=== PATIENT | male | born 1940 | race Caucasian/White ===

== ENCOUNTER → 2016-06-12 | Outpatient (CLI) | payer OTHER, MEDICARE | LOC: MMPC 11:11 | DX: I50.20 Unspecified systolic (congestive) heart failure (principal); J44.9 Chronic obstructive pulmonary disease, unspecified; E55.9 Vitamin D deficiency, unspecified; I73.9 Peripheral vascular disease, unspecified; E11.9 Type 2 diabetes mellitus without complications; I25.10 Atherosclerotic heart disease of native coronary artery without angina pectoris; E66.9 Obesity, unspecified; E78.5 Hyperlipidemia, unspecified | CPT/HCPCS: 99213; G0463 ==

== ENCOUNTER → 2016-07-24 | Outpatient (CLI) | payer OTHER, MEDICARE ==
[2016-07-24 17:44] LABS: HEMOGLOBIN A1C 7.74 % (4.2-6.0); MEAN BLOOD GLUCOSE (CALC) 171.742 mg/dL
[2016-07-24 18:00] LABS: BUN/CREATININE RATIO 28.88 (6-20); CALCIUM 9.1 mg/dL (8.7-10.7); CREATININE 0.9 mg/dL (0.70-1.50); POTASSIUM 4.3 meq/L (3.8-5.2)
== END ==
LOC: MOB LAB 16:45
DX: E11.9 Type 2 diabetes mellitus without complications (principal); Z79.4 Long term (current) use of insulin; I10 Essential (primary) hypertension; F17.210 Nicotine dependence, cigarettes, uncomplicated
CPT/HCPCS: 36415; 80048; 83036

== ENCOUNTER → 2016-08-07 | Outpatient (CLI) | payer OTHER, MEDICARE | LOC: MMPC 10:00 | PROVIDERS: ATTEND Orthopaedic Surgery | DX: M25.562 Pain in left knee (principal); M25.561 Pain in right knee | CPT/HCPCS: 20610; G0463; J0702 ==

== ENCOUNTER → 2016-08-20 | Outpatient (CLI) | payer OTHER, MEDICARE ==
[2016-08-20 11:30] LABS: BUN/CREATININE RATIO 31.53 (6-20); CALCIUM 9.4 mg/dL (8.7-10.7); URIC ACID 7.8 mg/dl (3.8-8.5)
== END ==
LOC: MOB LAB 10:20
DX: E11.9 Type 2 diabetes mellitus without complications (principal); Z79.4 Long term (current) use of insulin; I10 Essential (primary) hypertension; M10.062 Idiopathic gout, left knee; F17.210 Nicotine dependence, cigarettes, uncomplicated
CPT/HCPCS: 36415; 80048; 84550

== ENCOUNTER → 2016-10-16 | Outpatient (CLI) | payer OTHER, MEDICARE ==
[2016-10-16 13:00] LABS: BUN/CREATININE RATIO 28.88 (6-20); CALCIUM 9.4 mg/dL (8.7-10.7)
== END ==
LOC: MOB LAB 11:26
DX: E11.9 Type 2 diabetes mellitus without complications (principal); Z79.4 Long term (current) use of insulin; I10 Essential (primary) hypertension; F17.200 Nicotine dependence, unspecified, uncomplicated
CPT/HCPCS: 36415; 80048

== ENCOUNTER 2016-11-26 20:54 | Observation (INO) | payer OTHER, MEDICARE ==
[2016-11-26] MEDS ORDERED: NORMAL SALINE 10 ML SYRINGE FLUSH IVP PRN ×2 (21:00→23:41)
[2016-11-26] MEDS ORDERED: Sodium Chloride 0.9% 1,000 ML PRIMARY IV ONE (21:00)
--- NOTE | 2016-11-26 21:11 | EKG ---
[address] [address] Measurements Intervals [place] Rate: 85 P: MA: 0 QRS: 96 QRSD: 107 T: 72 QT: 366 QTc: 408 Interpretive Statements ATRIAL FIBRILLATION BORDERLINE RIGHT AXIS DEVIATION POSSIBLE OLD INFERIOR MT NONSPECIFIC ST CHANGES POSSIBLE RIGHT VENTRICULAR CONDUCTION DELAY Compared to ECG 04/07/2016 14:19:38 ST (T wave) deviation now present Myocardial infarct finding still present Electronically Signed On 11-27-16 09:52:57 MDT by Levy Patel [email or web address]
[2016-11-26 21:29] LABS: BASOPHILS # (AUTO) 0.06 10*3/UL; BASOPHILS % (AUTO) 0.7 % (0-1); EOSINOPHILS # (AUTO) 0.14 10*3/UL; EOSINOPHILS % (AUTO) 1.6 % (0-8); HEMATOCRIT 47.7 % (42.0-52.0); HEMOGLOBIN 15.9 g/dL (14.0-18.0); LYMPHOCYTES # (AUTO) 1.08 10*3/uL; MEAN CORPUSCULAR HEMOGLOBIN 30.9 PG (27-31); MEAN CORPUSCULAR HGB CONC 33.3 g/dL (33-37); MEAN CORPUSCULAR VOLUME 92.6 FL (80-90); MEAN PLATELET VOLUME 9.9 FL (7.4-12.2); MONOCYTES # (AUTO) 0.86 10*3/UL (0.3-0.8); MONOCYTES % (AUTO) 9.6 % (5-15); NEUTROPHILS # (AUTO) 6.76 10*3/UL; NEUTROPHILS % (AUTO) 75.6 % (50-80); RED BLOOD COUNT 5.15 10^6/uL (4.70-6.10)
[2016-11-26 21:34] LABS: PLATELET MORPHOLOGY COMMENT NORMAL MORPHOLOGY (NORM); RBC MORPHOLOGY COMMENT NORMAL MORPHOLOGY (NORM); WBC MORPHOLOGY COMMENT NORMAL MORPHOLOGY (NORM)
[2016-11-26 21:42] LABS: BILIRUBIN,URINE NEGATIVE (NEG); CLARITY,URINE CLEAR (CLEAR); COLOR,URINE YELLOW; GLUCOSE, URINE (UA) 250 mg/dL (NEG); NITRATE,URINE NEGATIVE (NEG); OCCULT BLOOD,URINE NEGATIVE (NEG); PROTEIN,URINE NEGATIVE (NEG)
[2016-11-26 21:43] LABS: BLOOD UREA NITROGEN 29 mg/dL (7-22); BUN/CREATININE RATIO 24.16 (6-20); C-REACTIVE PROTEIN 1.2 mg/dL (0.0-0.9); CALCIUM 9.3 mg/dL (8.7-10.7); MAGNESIUM 1.6 mg/dL (1.6-2.4); SERUM ALBUMIN 4.3 g/dL (3.5-4.8)
[2016-11-26 21:48] LABS: URINE SAMPLE TYPE CLEAN CATCH URINE
[2016-11-26 21:49] LABS: AMPHETAMINE SCREEN NEGATIVE (NEG); BACTERIA,URINE RARE; CANNABINOID SCREEN,URINE NEGATIVE (NEG); COCAINE SCREEN NEGATIVE (NEG); METHADONE URINE SCREEN NEGATIVE (NEG); METHAMPHETAMINES SCREEN,URINE NEGATIVE (NEG); OPIATE SCREEN,URINE NEGATIVE (NEG); RBC,URINE RARE /hpf; SQUAMOUS EPITHELIAL CELL,UR RARE; URINE SPECIFIC GRAVITY - MAN 1.009; WBC,URINE RARE
--- NOTE | 2016-11-26 22:19 | DI ---
HISTORY: Speech difficulty. COMPARISON: None available. TECHNIQUE: A noncontrast head CT was performed. FINDINGS: There is no midline shift or mass effect. The CSF spaces to include the ventricles, ciste rns and cerebral sulci are age appropriate. There are no pathologic fluid collections or evidence of acute intracranial hemorrhage. There are mild hypoattenuating regions within the white matter which are most compatible with age ind eterminate microvascular ischemic changes. There are atherosclerotic calcifications within the caroti d siphons. There is complete opacification of the right maxillary sinus. No significant mastoid air cell fluid. The imaged soft tissues of the neck and orbits are unremarkable. IMPRESSION: 1. Mild hypoattenuating regions within the white matter which are most compatible with age indetermin ate microvascular ischemic changes. 2. No acute intracranial hemorrhage, midline shift or mass effect. 3. There is right maxillary sinus disease with complete opacification of the right maxillary sinus.
[2016-11-26] MEDS ORDERED: Apixaban 5 MG TABLET PO ONE (22:22)
[2016-11-26] MEDS ORDERED: NITROGLYCERIN 0.4 MG SL TAB (BOTTLE OF 3) SL SCH (23:41)
[2016-11-26] MEDS ORDERED: LIDOCAINE W/ SODIUM BICARB 0.5 ML SYR SUBD PRN (23:41)
[2016-11-26] MEDS ORDERED: HEPARIN 5000 UNIT/1 ML SUBCUT SCH (23:41)
--- NOTE | 2016-11-27 00:31 | PDOC ---
General Adult HPI - General Chief Complaint: General Medical Stated Complaint: SLURRED SPEECH Date Seen by Provider: 11/26/16 Time Seen by Provider: 20:55 Source: POSITIVE: Patient, EMS Exam Limitations: POSITIVE: No limitations Nurse's Notes Reviewed & Considered: Yes EMS Report Reviewed & Considered: Verbal - History of Present Illness Initial Comment: The patient is a 76-year-old male who is brought to the emergency department by ambulance after an episode of slurred speech, word finding and increased confusion. The patient is a known diabetic and has a history of heart disease with previous bypass surgery as well as chronic atrial fibrillation. Apparently while talking to some friends earlier this evening he had onset of slurred speech and was having difficulty finding words. According to the patient this lasted for a total of 15-20 minutes. EMS had been called and by the time they arrived architectural manager reported fairly normal speech. The patient does seem somewhat confused at times more than baseline however has not exhibited any further speech difficulties. On arrival the patient denies any headache, chest pain, numbness or weakness in his extremities, change in vision or any other associated complaints. His blood sugar in route was 240. He does take Coumadin for atrial fibrillation however admits he does not remember when he took it last. architectural manager report that he was sitting outside in the shade when they came to pick him up. Have you received a tetanus shot in the past 10 years?: Unknown - Patient Home Medications Home Medications: Home Medications Nitroglycerin SL Tab [Nitrostat SL Tab] 1 tab SL ONCE #25 tab 01/18/15 Alprazolam 1 tab PO BID PRN #60 tab 07/07/16 Syringe & Needle,Insulin,1 ml [Easy Comfort Insulin Syringe] 1 each MC BID #100 box 07/18/16 Metformin HCl [Glucophage] 1 tab PO BID #60 tab 07/30/16 Warfarin Sodium [Coumadin] 0.5 - 1 tab PO QD #60 tab 07/30/16 Metoprolol Succinate [Toprol Xl] 1 tab PO QD #30 tab 08/11/16 Atorvastatin Calcium 1 tab PO QD #30 tab 08/18/16 Allopurinol 0.5 tab PO QD #15 tab 08/21/16 Furosemide 1.5 tab PO QD #60 tab 08/21/16 Potassium Chloride [Klor-Con 10] 1 tab PO QD #30 tab 08/21/16 Gabapentin 4 cap PO QD #120 cap 09/16/16 Quinapril HCl [Accupril] 1 tab PO QD #30 tab 09/29/16 Detemir Inj [Levemir Inj] 40 unit SUBCUT BID #2 vial 10/01/16 Insulin Glargine Inj [Lantus Inj] 80 units SUBCUT QHS #1 vial 10/16/16 Tamsulosin HCl 1 cap PO QHS #30 cap 11/11/16 - Patient Allergies Allergies/Adverse Reactions: Allergies Allergy/AdvReac Type Severity Reaction Status Date / Time No Known Allergies Allergy Verified 11/26/16 21:08 Past Medical History - heen HEENT History: Denies History, Other (please comment) Additional HEENT History: MISSING TEETH Cardiovascular History: Hypertension, Other (please comment) Additional Cardiovasular History: CARDIAC SURGERY 5 YEARS AGO Respiratory History: Denies History Gastrointestinal History: Denies History Genitourinary History: Denies History Endocrine History: Type 2 Diabetes (oral), Type 2 Diabetes (insulin) Musculoskeletal History: Denies History Prosthesis or Implant: No Neurological History: Denies History Blood Disorders: Denies History Psychiatric History: Anxiety Disorders History of Sexually Transmitted Diseases: No Cancer History: Denies History In Past Year Been Physically Harmed or Verbally Threatened: No History of MDRO: No History of Other Communicable Diseases: No Tobacco Use: Current Every Day Smoker Alcohol Use: Sober Substance Use Type: None Previous Surgical History: Yes Type / Date of Surgery: CABG x3, BACK Anesthesia Reactions: No Malignant Hyperthermia: No Significant Family History: Other (please comment) Additional Family History: unknown Past Medical History Reviewed: Reviewed - No Changes ROS - Limitations ROS Limitations: No Limitations Constitution: DENIES: Chills, Fever Cardiovascular: DENIES: Chest Pain Respiratory: REPORTS: Denies Resp Symptoms, Shortness Of Breath (Chronic shortness of breath, history of COPD on 2 L of oxygen at home) Neurological: REPORTS: Confusion. DENIES: Headache, Numbness, Weakness Gastrointestinal: REPORTS: Denies GI Symptoms Endocrine: REPORTS: Denies Symptoms Musculoskeletal: REPORTS: Denies MS Symptoms Genitourinary: REPORTS: Denies Symptoms Eyes: REPORTS: Denies Symptoms ENT: REPORTS: Denies Symptoms Skin: DENIES: Rash General Adult Exam - General Appearance General Appearance: POSITIVE: Alert, Cooperative, No Acute Distress - HEENT HEENT: POSITIVE: Head Inspection Nml, Eyes Inspection Nml, Ears Inspection Nml, Pharynx Inspect. Nml - Neck Neck: POSITIVE: Normal Inspection. NEGATIVE: Lymphadenopathy - Respiratory Respiratory: POSITIVE: No Respiratory Distress, Breath Sounds Normal - Cardiovascular Cardiovascular: POSITIVE: No Murmur, Irregularly Irreg. 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 Chest x-ray shows no acute changes. Lab Results Reviewed: Yes Lab Results:: Laboratory Results 11/26/16 Range/Units 20:30 WBC 8.94 (4.8-10.8) 10^3/uL RBC 5.15 (4.70-6.10) 10^6/uL Hgb 15.9 (14.0-18.0) g/dL Hct 47.7 (42.0-52.0) % MCV 92.6 H (80-90) FL MCH 30.9 (27-31) PG MCHC 33.3 (33-37) g/dL RDW Std Deviation 53.2 H (39-50) fL RDW Coeff of Parminder 16.4 H (11.5-14.5) % Plt Count 258 (140-350) 10*3/uL MPV 9.9 (7.4-12.2) FL Immature Gran % (Auto) 0.4 (0-5) % Neut % (Auto) 75.6 (50-80) % Lymph % (Auto) 12.1 (10-50) % [place] % (Auto) 9.6 (5-15) % Eos % (Auto) 1.6 (0-8) % Baso % (Auto) 0.7 (0-1) % Immature Gran # (Auto) 0.04 10*3/UL Neut # (Auto) 6.76 10*3/UL Lymph # (Auto) 1.08 10*3/uL [place] # (Auto) 0.86 H (0.3-0.8) 10*3/UL Eos # (Auto) 0.14 10*3/UL Baso # (Auto) 0.06 10*3/UL WBC Morphology Comment Normal morphology (NORM) Plt Morphology Comment Normal morphology (NORM) RBC Morph Comment Normal morphology (NORM) PT 11.4 (9.7-11.4) secs INR 1.10 (0.00-5.90) N/A Sodium 138 (135-145) meq/L Potassium 4.3 (3.8-5.2) meq/L Chloride 99 (98-112) meq/L Carbon Dioxide 25 (23-33) meq/L Anion Gap 14 (5-20) BUN 29 H (7-22) mg/dL Creatinine 1.2 (0.70-1.50) mg/dL Estimated GFR (>60 ml/min/1.73m(2)) BUN/Creatinine Ratio 24.16 H (6-20) Glucose 270 H (78-110) mg/dL Calculated Osmolality 301.0 H (267-292) mOsm/kg Calcium 9.3 (8.7-10.7) mg/dL Magnesium 1.6 (1.6-2.4) mg/dL Total Bilirubin 0.6 (0.3-1.2) mg/dL AST 30 (21-57) IU/L ALT 42 (21-72) IU/L Alkaline Phosphatase 78 (38-126) IU/L Troponin I < 0.012 (< 0.040) ng/mL C-Reactive Protein 1.2 H (0.0-0.9) mg/dL Total Protein 7.0 (6.1-8.0) g/dL Albumin 4.3 (3.5-4.8) g/dL Globulin 2.7 (2.50-4.10) g/dL Albumin/Globulin Ratio 1.50 (1.3-2.0) mg/g Ur Collection Type Clean catch urine Urine Color Yellow Urine Clarity Clear (CLEAR) Urine pH 5.0 (5.0-8.5) Ur Specific [place] 1.010 (1.005-1.030) U Specif Grav (Refrac) 1.009 Urine Protein Negative (NEG) mg/dl Urine Glucose (UA) 250 (NEG) mg/dL Urine Ketones Negative (NEG) Urine Occult Blood Negative (NEG) Urine Nitrate Negative (NEG) Urine Bilirubin Negative (NEG) Urine Urobilinogen 1.0 (0.2) EU/dL Ur Leukocyte Esterase Trace (NEG) Urine RBC Rare (NONE) /hpf Urine WBC Rare (NONE) Ur Squamous Epith Cells Rare (NONE) Ur Renal Epithelial Cell None (NONE) Urine Crystals None Urine Bacteria Rare (NONE) Urine Casts None (NONE) Urine Mucus None (NONE) Urine Trichomonas None (NONE) Urine Yeast None (NONE) Ur Culture Indicated? Culture not set Urine Opiates Screen Negative (NEG) Ur Buprenorphine Negative (NEG) Ur Oxycodone Screen Negative (NEG) Urine Methadone Screen Negative (NEG) Ur Propoxyphene Screen Negative (NEG) Barbiturate Screen Negative (NEG) U Tricyclic Antidepress Negative (NEG) Phencyclidine Screen Negative (NEG) Amphetamines Screen Negative (NEG) U Methamphetamines Scrn Negative (NEG) Benzodiazepines Screen Negative (NEG) Cocaine Screen Negative (NEG) U Marijuana (THC) Screen Negative (NEG) Serum Alcohol < 10 (0-10) mg/dL EKG Interpreted/Reviewed By Me:: Yes EKG Interpretation:: POSITIVE: Other (EKG shows atrial fibrillation with a normal rate of 85, no acute ST segment or T-wave changes) - Patient's Progress MDM / ED Course: On arrival the patient does not exhibit any focal neurologic deficits. He does not show any obvious speech deficit or slurred speech. Occasionally he does seem confused. The patient's CT does show several small hypodense lesions concerning for indeterminate age ischemic changes per radiologist. He does have chronic atrial fibrillation and is subtherapeutic on his INR at 1.1. By history he had some mild expressive aphasia and slurred speech concerning for TIA with symptoms lasting 15-20 minutes. It is possible that he may have had a small embolic event secondary to his atrial fibrillation and subtherapeutic INR. These findings were discussed with the patient. I also discussed patient with Dr. Shukla who is agreed to admit the patient for further observation. He recommended starting the patient on eliquis instead of Coumadin. He was given a dose of 5 mg of eliquis. The patient is in agreement with current plan. - Consult Counseled: POSITIVE: Patient, RE: Lab Results, RE: Radiology Results, RE: DX Patient Care Time - Estimated PCT Patient Care Time (In Minutes): 30 Vital Signs - Recent Vital Signs Vital Signs: Vital Signs (Last 8 hours) Temp Pulse Resp BP Pulse Ox 11/26/16 23:33 98.2 F 85 16 151/80 11/26/16 22:44 85 16 11/26/16 20:55 97.8 F 97 20 156/85 90 - VS Reviewed Vital Signs Reviewed: Yes Discharge Clinical Impression: Transient cerebral ischemia, Subtherapeutic international normalized ratio (INR ), Atrial fibrillation Discharge Disposition: Admit to Observation Condition: Fair
[2016-11-27] MEDS: HEPARIN 5000 UNIT/1 ML SUBCUT SCH ×2 (00:54→08:24)
[2016-11-27] MEDS ORDERED: LORazepam 2 MG/1 ML VIAL IVP PRN (02:09)
[2016-11-27] MEDS: LORazepam 2 MG/1 ML VIAL IVP PRN ×3 (02:22→05:50)
[2016-11-27 02:57] LABS: BASOPHILS # (AUTO) 0.06 10*3/UL; BASOPHILS % (AUTO) 0.7 % (0-1); EOSINOPHILS # (AUTO) 0.11 10*3/UL; EOSINOPHILS % (AUTO) 1.2 % (0-8); HEMATOCRIT 43.8 % (42.0-52.0); HEMOGLOBIN 14.7 g/dL (14.0-18.0); LYMPHOCYTES # (AUTO) 1.17 10*3/uL; MEAN CORPUSCULAR HEMOGLOBIN 30.8 PG (27-31); MEAN CORPUSCULAR HGB CONC 33.6 g/dL (33-37); MEAN CORPUSCULAR VOLUME 91.8 FL (80-90); MEAN PLATELET VOLUME 9.2 FL (7.4-12.2); MONOCYTES % (AUTO) 10.9 % (5-15); NEUTROPHILS # (AUTO) 6.78 10*3/UL; NEUTROPHILS % (AUTO) 74.1 % (50-80); RED BLOOD COUNT 4.77 10^6/uL (4.70-6.10)
[2016-11-27 03:36] LABS: CALCIUM 8.8 mg/dL (8.7-10.7); MAGNESIUM 1.5 mg/dL (1.6-2.4); SERUM ALBUMIN 3.6 g/dL (3.5-4.8)
[2016-11-27 03:40] LABS: PLATELET MORPHOLOGY COMMENT NORMAL MORPHOLOGY (NORM); RBC MORPHOLOGY COMMENT NORMAL MORPHOLOGY (NORM); WBC MORPHOLOGY COMMENT NORMAL MORPHOLOGY (NORM)
[2016-11-27 04:06] LABS: FREE T4 (FREE THYROXINE) 1.39 ng/dL (0.93-1.71)
[2016-11-27] MEDS ORDERED: MORPHINE SULFATE 2 MG/1 ML IVP PRN (06:09)
[2016-11-27] MEDS: ALPRAZolam Tab 0.25 MG TABLET PO SCH ×2 (07:49→08:34)
--- NOTE | 2016-11-27 08:02 | DI ---
AP CHEST X-RAY, 11/26/2016 9:00 PM : Clinical History: Hypoxia. Previous Exam: 04/07/2016. There is no acute soft tissue or bony abnormality. The patient is status post CABG. The heart size is normal. Lungs are clear. Mediastinal structures are normal. There are no pulmonary nodules. Reading: Normal chest x-ray. There has been no significant interval change.
[2016-11-27] MEDS ORDERED: LORazepam 1 MG TABLET ONE (08:26)
[2016-11-27] MEDS ORDERED: LORazepam 1 MG TABLET PO ONE (08:38)
[2016-11-27] MEDS ORDERED: METOPROLOL SUCCINATE 25 MG SR 24H TABLET PO SCH (09:00)
[2016-11-27] MEDS ORDERED: QUINAPRIL 20 MG TABLET PO SCH (09:00)
[2016-11-27] MEDS ORDERED: Potassium Chloride Tab 10 MEQ TAB PO SCH (09:00)
[2016-11-27] MEDS ORDERED: ALLOPURINOL 300 MG TABLET PO SCH (09:00)
[2016-11-27] MEDS ORDERED: FUROSEMIDE 40 MG TABLET PO SCH (09:00)
[2016-11-27] MEDS ORDERED: ASPIRIN EC 81 MG TABLET PO SCH (09:00)
[2016-11-27] MEDS ORDERED: metFORMIN 500 MG TABLET PO SCH (09:00)
[2016-11-27] MEDS ORDERED: DETEMIR SUBCUT SCH (09:00)
[2016-11-27] MEDS ORDERED: GABAPENTIN 300 MG CAPSULE PO SCH (09:00)
[2016-11-27] MEDS ORDERED: Apixaban Tab 2.5 MG TABLET PO SCH (09:00)
[2016-11-27 09:11] VITALS: RESP 20; TEMP 97.4
--- NOTE | 2016-11-27 09:11 | PDOC ---
History and Physical - History of Present Illness History of Present Illness: This very nice 76-year-old gentleman who by taking care of before. Past medical history significant for diabetes, coronary artery disease with previous bypass and chronic A. fib. While talking with some friends he had some slurred speech and OT finding words for about 15-20 minutes. By the time he hit the ER he was back to his baseline. He is not very compliant with taking his Coumadin and is very difficult for him to taking get checks he was subtherapeutic on blood work. He has some agitation but this is because he really wants to go home and does not feel comfortable in the hospital this is also his normal behavior which she exhibited last time he was here did not want to be in the hospital and his restless he wants to be in his whole bed and environment. I did call the daughter at the bedside who works in the kitchen patient appeared to be his normal self he was not restless more we talked he was awake oriented 3 he does not want an MRI of his head does not want carotid Doppler and does not want another echo he just wants to be going home. We discussed medications in regards to the specifically the Coumadin with the daughter and the patient we will be putting him on Eliquis since he did most of the time he subtherapeutic and has not a lot and does not like taking Coumadin. He continues to smoke and I have cautioned him against this the patient and the daughter did not want any physical therapy and occupational therapy or if his social service involved. They will be discharged home and follow-up as an outpatient with their physician. He is doing well this morning no neurologic abnormalities speaking in full sentences. Also on CT scan of his head does not signs of stroke but there is a opacification of the right maxillary I will give him a course of antibiotics Augmentin for 7 days Laboratory Results 11/26/16 11/27/16 Range/Units 20:30 02:47 WBC 8.94 9.15 (4.8-10.8) 10^3/uL RBC 5.15 4.77 (4.70-6.10) 10^6/uL Hgb 15.9 14.7 (14.0-18.0) g/dL Hct 47.7 43.8 (42.0-52.0) % MCV 92.6 H 91.8 H (80-90) FL MCH 30.9 30.8 (27-31) PG MCHC 33.3 33.6 (33-37) g/dL RDW Std Deviation 53.2 H 52.1 H (39-50) fL RDW Coeff of Parminder 16.4 H 15.8 H (11.5-14.5) % Plt Count 258 220 (140-350) 10*3/uL MPV 9.9 9.2 (7.4-12.2) FL Immature Gran % (Auto) 0.4 0.3 (0-5) % Neut % (Auto) 75.6 74.1 (50-80) % Lymph % (Auto) 12.1 12.8 (10-50) % [place] % (Auto) 9.6 10.9 (5-15) % Eos % (Auto) 1.6 1.2 (0-8) % Baso % (Auto) 0.7 0.7 (0-1) % Immature Gran # (Auto) 0.04 0.03 10*3/UL Neut # (Auto) 6.76 6.78 10*3/UL Lymph # (Auto) 1.08 1.17 10*3/uL [place] # (Auto) 0.86 H 1.00 H (0.3-0.8) 10*3/UL Eos # (Auto) 0.14 0.11 10*3/UL Baso # (Auto) 0.06 0.06 10*3/UL WBC Morphology Comment Normal morphology Normal morphology (NORM) Plt Morphology Comment Normal morphology Normal morphology (NORM) RBC Morph Comment Normal morphology Normal morphology (NORM) PT 11.4 11.7 H (9.7-11.4) secs INR 1.10 1.13 (0.00-5.90) N/A Sodium 138 131 L (135-145) meq/L Potassium 4.3 4.1 (3.8-5.2) meq/L Chloride 99 100 (98-112) meq/L Carbon Dioxide 25 24 (23-33) meq/L Anion Gap 14 7 (5-20) BUN 29 H 25 H (7-22) mg/dL Creatinine 1.2 1.0 (0.70-1.50) mg/dL Estimated GFR (>60 ml/min/1.73m(2)) BUN/Creatinine Ratio 24.16 H 25.00 H (6-20) Glucose 270 H 231 H (78-110) mg/dL Calculated Osmolality 301.0 H 282.0 (267-292) mOsm/kg Calcium 9.3 8.8 (8.7-10.7) mg/dL Magnesium 1.6 1.5 L (1.6-2.4) mg/dL Total Bilirubin 0.6 0.8 (0.3-1.2) mg/dL AST 30 22 (21-57) IU/L ALT 42 41 (21-72) IU/L Alkaline Phosphatase 78 72 (38-126) IU/L Troponin I < 0.012 0.013 (< 0.040) ng/mL C-Reactive Protein 1.2 H (0.0-0.9) mg/dL Total Protein 7.0 5.9 L (6.1-8.0) g/dL Albumin 4.3 3.6 (3.5-4.8) g/dL Globulin 2.7 2.3 L (2.50-4.10) g/dL Albumin/Globulin Ratio 1.50 1.50 (1.3-2.0) mg/g TSH 1.16 (0.2700-4.2000) uIU/mL Free T4 1.39 (0.93-1.71) ng/dL Ur Collection Type Clean catch urine Urine Color Yellow Urine Clarity Clear (CLEAR) Urine pH 5.0 (5.0-8.5) Ur Specific [place] 1.010 (1.005-1.030) U Specif Grav (Refrac) 1.009 Urine Protein Negative (NEG) mg/dl Urine Glucose (UA) 250 (NEG) mg/dL Urine Ketones Negative (NEG) Urine Occult Blood Negative (NEG) Urine Nitrate Negative (NEG) Urine Bilirubin Negative (NEG) Urine Urobilinogen 1.0 (0.2) EU/dL Ur Leukocyte Esterase Trace (NEG) Urine RBC Rare (NONE) /hpf Urine WBC Rare (NONE) Ur Squamous Epith Cells Rare (NONE) Ur Renal Epithelial Cell None (NONE) Urine Crystals None Urine Bacteria Rare (NONE) Urine Casts None (NONE) Urine Mucus None (NONE) Urine Trichomonas None (NONE) Urine Yeast None (NONE) Ur Culture Indicated? Culture not set Urine Opiates Screen Negative (NEG) Ur Buprenorphine Negative (NEG) Ur Oxycodone Screen Negative (NEG) Urine Methadone Screen Negative (NEG) Ur Propoxyphene Screen Negative (NEG) Barbiturate Screen Negative (NEG) U Tricyclic Antidepress Negative (NEG) Phencyclidine Screen Negative (NEG) Amphetamines Screen Negative (NEG) U Methamphetamines Scrn Negative (NEG) Benzodiazepines Screen Negative (NEG) Cocaine Screen Negative (NEG) U Marijuana (THC) Screen Negative (NEG) Serum Alcohol < 10 (0-10) mg/dL Vital Signs (24 hrs) Temp Pulse Pulse Resp BP BP Pulse Ox 11/27/16 04:57 97.5 F 90 18 130/67 92 11/27/16 04:32 91 11/27/16 02:53 80 11/27/16 01:00 155/85 11/26/16 23:33 98.2 F 85 16 151/80 11/26/16 22:44 85 16 11/26/16 22:40 98.6 F 84 22 147/95 92 11/26/16 21:02 90 11/26/16 20:55 97.8 F 97 20 156/85 90 Past Medical History Medical History: 1. Diabetes type II on insulin. 2. Hypertension. 3. Atrial fibrillation, on Coumadin for stroke prevention. 4. Coronary artery disease with CABG years ago. 5. Osteoarthritis. 6. Hyperlipidemia. 7. Sleep apnea. 8. Recent treatment for cellulitis Surgical History: 1. CABG many years ago. 2. Lumbar spine surgery Family History: Reviewed an Not Pertinent Pertinent Family History: No major history of heart disease or diabetes in the family. Past Social History: Smokes, doesn't drink alcohol, has 2 children described as healthy. Lives alone in [place], [place]. Tobacco Use: Current Every Day Smoker Substance Use Type: None Medication / Allergies Home Medications: Home Medications Medication Instructions Recorded Confirmed Type Nitroglycerin SL Tab [Nitrostat 1 tab SL ONCE #25 tab 01/18/15 11/26/16 Clinic SL Tab] Alprazolam 1 tab PO BID PRN #60 tab 07/07/16 11/26/16 Clinic Syringe & Needle,Insulin,1 ml 1 each MC BID #100 box 07/18/16 11/26/16 Clinic [Easy Comfort Insulin Syringe] Metformin HCl [Glucophage] 1 tab PO BID #60 tab 07/30/16 11/26/16 Clinic Warfarin Sodium [Coumadin] 0.5 - 1 tab PO QD #60 tab 07/30/16 11/26/16 Clinic Metoprolol Succinate [Toprol Xl] 1 tab PO QD #30 tab 08/11/16 11/26/16 Clinic Atorvastatin Calcium 1 tab PO QD #30 tab 08/18/16 11/26/16 Clinic Allopurinol 0.5 tab PO QD #15 tab 08/21/16 11/26/16 Clinic Furosemide 1.5 tab PO QD #60 tab 08/21/16 11/26/16 Clinic Potassium Chloride [Klor-Con 10] 1 tab PO QD #30 tab 08/21/16 11/26/16 Clinic Gabapentin 4 cap PO QD #120 cap 09/16/16 11/26/16 Clinic Quinapril HCl [Accupril] 1 tab PO QD #30 tab 09/29/16 11/26/16 [facility] Detemir Inj [Levemir Inj] 40 unit SUBCUT BID #2 vial 10/01/16 11/26/16 Clinic Insulin Glargine Inj [Lantus Inj] 80 units SUBCUT QHS #1 vial 10/16/16 11/26/16 [facility] Tamsulosin HCl 1 cap PO QHS #30 cap 11/11/16 11/26/16 Clinic Allergies/Adverse Reactions: Allergies Allergy/AdvReac Type Severity Reaction Status Date / Time No Known Allergies Allergy Verified 11/26/16 21:08 Review of Systems - Review of Systems All Systems: Reviewed & No Additional Complaints Except as Stated - Cardiovascular Cardiovascular: DENIES: Negative System Review, Chest Pain, Edema, Syncope, Palpitations, Orthopnea, Paroxysmal Nocturnal Dyspnea, Other, See HPI - Gastrointestinal Gastrointestinal / Abdominal: DENIES: Negative System Review, Nausea, Vomiting, Diarrhea, Constipation, Abdominal Pain, Bloody Stool, Poor Appetite, Heartburn, Regurgitation, Bloating, Lactose Intolerance, Melena, Bright Red Blood Per Rectum, Other, See HPI - Neurological Neurologic: DENIES: Negative System Review, Headache, Numbness/Paresthesia, Tremors, Weakness, Seizures, Head Trauma, LOC, Dizziness, Confusion, Memory Loss , Difficulty Walking, Incoordination, Other, See HPI Exam - Vitals Vital Signs: Vital Signs Temperature 97.5 F Temperature Source Temporal Artery Scan Pulse Rate [Pulse Oximeter] 90 Pulse Rate 80 Respiratory Rate 18 Blood Pressure [Left Arm] 130/67 Blood Pressure 147/95 Pulse Ox 92 Oxygen Delivery Method Room Air Height 5 ft 8 in Weight 106.685 kg - General General Appearance: POSITIVE: No Acute Distress, Cooperative - Head Head Exam: POSITIVE: Normal Inspection, Normocephalic, Atraumatic - Eye Eye Exam: POSITIVE: Normal Appearance, PERRL, EOMI - Neck Neck Exam: POSITIVE: Normal Inspection - Respiratory Respiratory Exam: POSITIVE: Clear to Auscultation - Bilaterally, Breathing Non Labored, Normal To Percussion - Cardiovascular Cardiovascular Exam: POSITIVE: No Clicks, No Gallops, Irregular Rhythm. NEGATIVE: Gallop, JVD, No JVD - GI/Abdominal GI/Abdominal Exam: POSITIVE: Non Tender, Non Distended, Soft - Extremities Extremities Exam: POSITIVE: No Clubbing Present, No Edema Present, No Cyanosis Present - Neurological Neurological Exam: POSITIVE: Alert, Oriented x 3, CN II-XII Intact, No Facial Droop, Speech Intact / Clear, Moves All Extremities Equally, No Fasciculations. NEGATIVE: Abnormal Gait - Psychiatric Psychiatric Exam: POSITIVE: Normal Affect, Anxious Results - Labs CBC and BMP: 11/27/16 02:47 11/27/16 02:47 Labs - Last 24 Hours: Laboratory Results 11/27/16 Range/Units 02:47 WBC 9.15 (4.8-10.8) 10^3/uL RBC 4.77 (4.70-6.10) 10^6/uL Hgb 14.7 (14.0-18.0) g/dL Hct 43.8 (42.0-52.0) % MCV 91.8 H (80-90) FL MCH 30.8 (27-31) PG MCHC 33.6 (33-37) g/dL RDW Std Deviation 52.1 H (39-50) fL RDW Coeff of Parminder 15.8 H (11.5-14.5) % Plt Count 220 (140-350) 10*3/uL MPV 9.2 (7.4-12.2) FL Immature Gran % (Auto) 0.3 (0-5) % Neut % (Auto) 74.1 (50-80) % Lymph % (Auto) 12.8 (10-50) % [place] % (Auto) 10.9 (5-15) % Eos % (Auto) 1.2 (0-8) % Baso % (Auto) 0.7 (0-1) % Immature Gran # (Auto) 0.03 10*3/UL Neut # (Auto) 6.78 10*3/UL Lymph # (Auto) 1.17 10*3/uL [place] # (Auto) 1.00 H (0.3-0.8) 10*3/UL Eos # (Auto) 0.11 10*3/UL Baso # (Auto) 0.06 10*3/UL WBC Morphology Comment Normal morphology (NORM) Plt Morphology Comment Normal morphology (NORM) RBC Morph Comment Normal morphology (NORM) PT 11.7 H (9.7-11.4) secs INR 1.13 (0.00-5.90) N/A Sodium 131 L (135-145) meq/L Potassium 4.1 (3.8-5.2) meq/L Chloride 100 (98-112) meq/L Carbon Dioxide 24 (23-33) meq/L Anion Gap 7 (5-20) BUN 25 H (7-22) mg/dL Creatinine 1.0 (0.70-1.50) mg/dL Estimated GFR (>60 ml/min/1.73m(2)) BUN/Creatinine Ratio 25.00 H (6-20) Glucose 231 H (78-110) mg/dL Calculated Osmolality 282.0 (267-292) mOsm/kg Calcium 8.8 (8.7-10.7) mg/dL Magnesium 1.5 L (1.6-2.4) mg/dL Total Bilirubin 0.8 (0.3-1.2) mg/dL AST 22 (21-57) IU/L ALT 41 (21-72) IU/L Alkaline Phosphatase 72 (38-126) IU/L Troponin I 0.013 (< 0.040) ng/mL Total Protein 5.9 L (6.1-8.0) g/dL Albumin 3.6 (3.5-4.8) g/dL Globulin 2.3 L (2.50-4.10) g/dL Albumin/Globulin Ratio 1.50 (1.3-2.0) mg/g TSH 1.16 (0.2700-4.2000) uIU/mL Free T4 1.39 (0.93-1.71) ng/dL Assessment and Plan - Patient Problems (1) Atrial fibrillation Current Visit: Yes (2) Subtherapeutic international normalized ratio (INR) Current Visit: Yes Status: Removed (3) TIA (transient ischemic attack) Current Visit: Yes Status: Removed
--- NOTE | 2016-11-27 09:33 | DCSUMMARY ---
Hospitalization Summary Hospital Course: Please see my H&P which is also the discharge summary patient was admitted for observation H&P and discharge within 24 hours Exam - Vitals Vital Signs: Vital Signs Temperature 97.4 F Temperature Source Temporal Artery Scan Pulse Rate [Pulse Oximeter] 84 Pulse Rate 80 Respiratory Rate 20 Blood Pressure [Left Arm] 144/86 Blood Pressure 147/95 Pulse Ox 90 Oxygen Delivery Method Room Air Height 5 ft 8 in Weight 106.685 kg Patient Problems - Patient Problem List (1) Atrial fibrillation Current Visit: Yes (2) Subtherapeutic international normalized ratio (INR) Current Visit: Yes Status: Removed (3) TIA (transient ischemic attack) Current Visit: Yes Status: Removed
[2016-11-27] MEDS ORDERED: Insulin Glargine SoloStar Inj 100 UNIT/ML INSULN.PEN SUBCUT SCH (21:00)
[2016-11-27] MEDS ORDERED: TAMSULOSIN 0.4 MG CAPSULE PO SCH (21:00)
[2016-11-27] MEDS ORDERED: ATORVASTATIN 20 MG TABLET PO SCH (21:00)
== END 2016-11-27 11:00 | disposition home or self-care (01) ==
LOC: ER 20:54 → MED/SURG 22:30
PROVIDERS: ADMIT Internal Medicine; ATTEND Internal Medicine
DX: G45.9 Transient cerebral ischemic attack, unspecified (principal); I48.91 Unspecified atrial fibrillation
CPT/HCPCS: 36415; 70450; 71010; 80053; 80305; 80320; 81001; 81003; 83735; 84439; 84443; 84484; 85025; 85610; 86140; 93005; 93010; 94761; 96374; 99284; J1644; J2060; J2270; J7030

== ENCOUNTER → 2016-12-03 | Outpatient (CLI) | payer OTHER, MEDICARE | LOC: MOB LAB 10:46 | PROVIDERS: ATTEND Physician Assistant | DX: Z09 Encounter for follow-up examination after completed treatment for conditions other than malignant neoplasm (principal); I10 Essential (primary) hypertension; E11.9 Type 2 diabetes mellitus without complications; Z79.4 Long term (current) use of insulin; Z79.01 Long term (current) use of anticoagulants | CPT/HCPCS: 36415; 85610 ==

== ENCOUNTER → 2016-12-22 | Outpatient (CLI) | payer OTHER, MEDICARE | LOC: MMPC 10:00 | PROVIDERS: ATTEND Orthopaedic Surgery | DX: M17.0 Bilateral primary osteoarthritis of knee (principal) | CPT/HCPCS: 20610 ×2; G0463; J0702 ==

== ENCOUNTER → 2017-01-08 | Outpatient (CLI) | payer OTHER, MEDICARE ==
--- NOTE | 2017-01-08 12:38 | DI ---
History: Right wrist pain Comparison: None: No fracture No malalignment No erosive/destructive changes Faint density within the soft tissue around the wrist. Etiology of this finding is indeterminate by t hese images. Impression No acute injury. No destructive or degenerative osseous changes Faint scattered soft tissue density around the wrist. Etiology is indeterminate
== END ==
LOC: MOB RAD 10:16
DX: M25.531 Pain in right wrist (principal); S60.211A Contusion of right wrist, initial encounter; S00.31XA Abrasion of nose, initial encounter; W06.XXXA Fall from bed, initial encounter; Z72.0 Tobacco use
CPT/HCPCS: 73110; 81002; 99213

== ENCOUNTER 2017-10-15 16:18 | Inpatient (IN) ==
[2017-10-15] MEDS ORDERED: Sodium Chloride 0.9% 1,000 ML PRIMARY IV ONE (16:53)
[2017-10-15] MEDS ORDERED: LIDOCAINE HCL 1%/EPI 1:100,000 - 20 ML VIAL SUBCUT ONE (16:56)
--- NOTE | 2017-10-15 17:10 | EKG ---
[address] [place] [address] Measurements Intervals [place] Rate: 102 P: SC: 0 QRS: 101 QRSD: 113 T: 61 QT: 335 QTc: 394 Interpretive Statements ATRIAL FIBRILLATION WITH RAPID VENTRICULAR RESPONSE RIGHT AXIS DEVIATION [QRS AXIS > 100] POSSIBLE INFERIOR MYOCARDIAL INFARCTION PROBABLY OLD NONSPECIFIC ST-T WAVE CHANGES Compared to ECG 11/26/2016 21:16:28 Myocardial infarct finding still present Right ventricular conduction delay no longer present Electronically Signed On 10-17-17 17:20:26 MDT by Levy Patel [email or web address]
[2017-10-15] MEDS ORDERED: Lidocaine 1% 10 MG/ML - 20 ML VIAL SUBCUT ONE (17:23)
[2017-10-15 17:25] LABS: BASOPHILS # (AUTO) 0.02 10*3/UL; BASOPHILS % (AUTO) 0.2 % (0-1); EOSINOPHILS # (AUTO) 0.01 10*3/UL; EOSINOPHILS % (AUTO) 0.1 % (0-8); Hematocrit [HCT] 51.1 % (42.0-52.0); Hemoglobin [HGB] 16.9 g/dL (14.0-18.0); LYMPHOCYTES # (AUTO) 0.68 10*3/uL; MEAN CORPUSCULAR HEMOGLOBIN 29.5 PG (27-31); MEAN CORPUSCULAR HGB CONC 33.1 g/dL (33-37); MEAN CORPUSCULAR VOLUME 89.2 FL (80-90); MEAN PLATELET VOLUME 9.4 FL (7.4-12.2); MONOCYTES # (AUTO) 1.25 10*3/UL (0.3-0.8); NEUTROPHILS % (AUTO) 82.3 % (50-80); RED BLOOD COUNT 5.73 10^6/uL (4.70-6.10)
[2017-10-15 17:26] LABS: VENOUS PH 7.39 (7.32-7.42)
[2017-10-15 17:48] LABS: PLATELET MORPHOLOGY COMMENT NORMAL MORPHOLOGY (NORM); RBC MORPHOLOGY COMMENT NORMAL MORPHOLOGY (NORM); WBC MORPHOLOGY COMMENT NORMAL MORPHOLOGY (NORM)
[2017-10-15 18:22] LABS: APPEARANCE,SYNOVIAL FLUID HAZY (CLEAR, STRA); COLOR,SYNOVIAL FLUID YELLOW (CLR, STRW)
[2017-10-15 18:23] LABS: CRYSTALS, SYNOVIAL FLUID NONE SEEN (NS)
--- NOTE | 2017-10-15 18:36 | DI ---
AP /LATERAL CHEST, 10/15/2017 4:53 PM : Clinical History: Cough. Dyspnea. Previous Exam: 03/28/2016. There is no acute soft tissue or bony abnormality. The patient is status post CABG. Even for this pro jection, there is cardiomegaly but without CHF. There is no acute infiltrate or effusion. There is ce ntrilobular emphysema. Mediastinal structures are normal. There are no pulmonary nodules. Readin. There is no infiltrate or effusion. 2. Cardiomegaly without CHF. Status post CABG. 3. Centrilobular emphysema. 4. There has been no significant interval change.
[2017-10-15 18:43] LABS: BILIRUBIN,URINE NEGATIVE (NEG); CLARITY,URINE CLEAR (CLEAR); COLOR,URINE YELLOW (Y); GLUCOSE, URINE (UA) 500 mg/dL (NEG); OCCULT BLOOD,URINE NEGATIVE (NEG); PROTEIN,URINE NEGATIVE (NEG); UROBILINOGEN,URINE 0.2 EU/dL (0.2)
[2017-10-15 18:44] LABS: URINE SAMPLE TYPE VOIDED SPECIMEN
--- NOTE | 2017-10-15 18:46 | DI ---
LEFT KNEE, 10/15/2017 4:58 PM: Clinical History: Pain and swelling. Previous Exam: None at this facility. 3 views are submitted. A large joint effusion is present. Severe arthritic changes are present in the medial and lateral compartments with chondrocalcinosis. There is lateral subluxation of the patella with arthritic change. Readin. Degenerative arthritis of all 3 compartments. There is lateral subluxation of the patella with a large joint effusion. 2. Chondrocalcinosis.
--- NOTE | 2017-10-15 18:49 | DI ---
RIGHT KNEE, 10/15/2017 5:43 PM: Clinical History: Knee pain. Previous Exam: 04/11/2016. 3 views are submitted. A moderate joint effusion is present. Severe arthritic changes are present in the medial compartment with moderately severe arthritic change in the lateral compartment. There is c hondrocalcinosis. There is lateral subluxation of the patella with severe arthritic change. Bony dens ities are present along the right lateral margin of the patella similar to the last exam. Readin. Degenerative arthritis of all 3 compartments with severe changes in the medial and patellofemoral compartments. There is lateral subluxation of the patella. 2. Moderate joint effusion. Chondrocalcinosis.
[2017-10-15 19:22] LABS: BLOOD UREA NITROGEN 41 mg/dL (7-22); BUN/CREATININE RATIO 29.28 (6-20); SERUM ALBUMIN 3.9 g/dL (3.5-4.8)
--- NOTE | 2017-10-15 20:03 | PDOC ---
General Adult HPI - General Chief Complaint: Lower Extremity Problem/Injury Stated Complaint: fever, cough, shortness of breath, bilateral knee pain. Date Seen by Provider: 10/15/17 Time Seen by Provider: 16:40 Source: POSITIVE: Patient, EMS, Old records Exam Limitations: POSITIVE: No limitations Nurse's Notes Reviewed & Considered: Yes EMS Report Reviewed & Considered: Verbal - History of Present Illness Initial Comment: The patient is a 77-year-old male who is brought to the emergency room by the [facility]. The ambulance was called to the patient's residence by relatives. Reportedly the patient has been unable to ambulate for at least a couple of days. He does have chronic bilateral knee pain. Caregiver today visit the patient and reportedly his temperature was 100.8. Patient states he has had a cough and some increased shortness of breath lately. He has a history of coronary artery disease and has undergone a coronary artery bypass graft. He also has a history of diabetes, congestive heart failure and gout. He states he is not on home oxygen. He states he is "too weak to get up". He lives alone. He continues to smoke a pack of cigarettes per day. He denies present use of alcohol, but states he did drink heavily in the past. No nausea, diarrhea; chest or head or abdominal pain. Have you received a tetanus shot in the past 10 years?: Unknown Body Location Affected: REPORTS: Lower Extremity (L), Lower Extremity (R), Chest Timing: REPORTS: Gradual, Getting Worse Duration: >24 hours (2-3 days) Severity: Moderate Quality: REPORTS: "Pain" (Pain has some bilateral knee pain with ambulation.) Context: REPORTS: None Modifying Factors: improves with: Coughing, Walking Similar Symptoms Previously: Yes (family reports a similar episode in the past, diagnosed as "sepsis ") Recent Care Received: REPORTS: Denies Any Prior Injuries Related to Current Complaint?: No - Patient Home Medications Home Medications: Home Medications Nitroglycerin SL Tab [Nitrostat SL Tab] 1 tab SL ONCE #25 tab 01/18/15 Syringe and Needle,Insulin,1Ml [Easy Comfort Insulin Syringe] 1 ea MC BID #100 box 07/18/16 Aspirin [Aspir 81] 1 tab PO QD #30 tab 12/03/16 furosemide 40 mg tablet 60 mg PO QDAY #45 tab 04/14/17 alprazolam 0.25 mg tablet 0.25 mg PO BID PRN #60 tab 05/26/17 atorvastatin 20 mg tablet 20 mg PO QHS #30 tab 07/17/17 insulin detemir (U-100) 100 unit/mL subcutaneous solution 45 unit SUBCUT BID # 30 ml 07/17/17 potassium chloride ER 10 mEq capsule,extended release 10 meq PO QDAY #30 cap warfarin 10 mg tablet 0.5 - 1 tab PO as directed #60 tab 08/03/17 allopurinol 300 mg tablet 150 mg PO QD #15 tab 08/10/17 empagliflozin 10 mg tablet 10 mg PO QAM #30 tab 09/28/17 pregabalin 50 mg capsule 50 mg PO .QD #30 cap 09/29/17 metformin 1,000 mg tablet 1,000 mg PO BID #60 tab 10/06/17 quinapril 40 mg tablet 40 mg PO QD #30 tab 10/06/17 metoprolol succinate ER 25 mg tablet,extended release 24 hr 25 mg PO QD #30 tab 10/13/17 tamsulosin 0.4 mg capsule 0.4 mg PO QHS #30 cap 10/13/17 - Patient Allergies Allergies/Adverse Reactions: Allergies 3 Allergy/AdvReac Type Severity Reaction Status Date / Time No Known Allergies Allergy Verified 10/15/17 16:42 Past Medical History - heen HEENT History: Denies History, Other (please comment) Additional HEENT History: MISSING TEETH Cardiovascular History: Hypertension, CHF, Previous ND, CAD, PVD, Hyperlipidemia , Other (please comment) Additional Cardiovasular History: CARDIAC SURGERY 5 YEARS AGO Respiratory History: Denies History Gastrointestinal History: Denies History Genitourinary History: Denies History Endocrine History: Type 2 Diabetes (oral), Type 2 Diabetes (insulin) Musculoskeletal History: Gout, Other (please comment) Prosthesis or Implant: No Additional Musculoskeletal History: PERIPHERAL NEUROPATHY Neurological History: Denies History Blood Disorders: Denies History Psychiatric History: Anxiety Disorders History of Sexually Transmitted Diseases: No Cancer History: Denies History In Past Year Been Physically Harmed or Verbally Threatened: No History of MDRO: No History of Other Communicable Diseases: No Tobacco Use: Former Smoker Alcohol Use: Sober In the Past 12 Months, Have Used or Abuse Any Substance: None Previous Surgical History: Yes Type / Date of Surgery: CABG x3, BACK SURGERY, MAIKEL KNEE SURGERY Anesthesia Reactions: No Malignant Hyperthermia: No Significant Family History: Other (please comment) Additional Family History: unknown Past Medical History Reviewed: Reviewed - No Changes ROS - Limitations ROS Limitations: No Limitations, Other (please comment) (Patient is a somewhat vague historian) Constitution: REPORTS: Fever, Weakness Cardiovascular: REPORTS: Denies Cardiac Symptoms Respiratory: REPORTS: Cough Productive (Productive of mucoid sputum), Shortness Of Breath Neurological: REPORTS: Denies Neuro Symptoms Gastrointestinal: REPORTS: Denies GI Symptoms Endocrine: REPORTS: Fatigue Musculoskeletal: REPORTS: Joint Pain (Bilateral knee pain and swelling). DENIES : Recent Injury Genitourinary: REPORTS: Denies Symptoms Eyes: REPORTS: Denies Symptoms ENT: REPORTS: Denies Symptoms Skin: REPORTS: Other (Some cyanosis both feet and distal lower extremities) Lympathic: REPORTS: Denies Lympathic Symptoms Immunologic: POSITIVE: Denies Symptoms Psychiatric: POSITIVE: Denies Psych Symptoms General Adult Exam - General Appearance General Appearance: POSITIVE: Alert, Cooperative, No Acute Distress, No Evidence of Trauma - HEENT HEENT: POSITIVE: Head Inspection Nml, Eyes Inspection Nml, Ears Inspection Nml, Nose Inspection Nml, Oral/Dental Inspect. Nml, Pharynx Inspect. Nml, PERRL, EOMI - Pupils Pupil Size: 4 mm: Bilateral (PERRLA) - Neck Neck: POSITIVE: Normal Inspection, Thyroid Normal - Respiratory Respiratory: POSITIVE: Chest Non-Tender, Rales, Rhonchi (Some rales and rhonchi both lung bases). NEGATIVE: Breath Sounds Normal - Cardiovascular Cardiovascular: POSITIVE: No Murmur, No Gallop, PMI Normal, Irregularly Irreg. Rhythm (Atrial fibrillation at 102/m) Peripheral Pulses: Radial (R): 2+, Radial (L): 2+, Dorsalis-pedis (R): 1+, Dorsalis-pedis (L): 1+ - Abdomen Abdomen: Soft: (All Quadrants), Normal Bowel Sounds: (All Quadrants), Denies Tenderness: (All Quadrants), No Splenomegaly: (All Quadrants), No Hepatomegaly: (All Quadrants), No Guarding: (All Quadrants), No Rebound: (All Quadrants), No Palpable Pulse: (All Quadrants), No Palpabale Mass: (All Quadrants), No Distention: (All Quadrants), No Rigidity: (All Quadrants) - Back Back: POSITIVE: Normal Inspection - Skin Skin: POSITIVE: Other (Cyanosis 2 feet and distal lower extremities.) - Extremities Extremity: Non-Tender: (RUE), (LUE), Normal ROM: (RUE), (LUE), Normal Inspection : (RUE), (LUE), Pelvis Stable: (All Extremities), Normal Tendon Exam: (All Extremities), Tender: (RLE), (LLE), Joint Effusion: (RLE), (LLE) Additional Extremities Details: Upper extremity examination is normal. Lower extremity examination shows bilateral knee effusions; there is some discomfort with full flexion and extension of the knees. There is no redness or calor. Arthrocentesis, left knee, done which showed no organisms on Gram stain. No crystals. See laboratory values. 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 Arthrocentesis was then performed using the lateral approach. Somewhat turbid straw-colored synovial fluid was recovered. Gram stain showed no organisms. No crystals. White blood cell count 35,000. Patient tolerated procedure well.) General Adult Progress - Results Reviewed by me Xrays/CTs/US Reviewed by me: Yes Discussed with Radiologist: Yes Radiology Findings: Chest x-ray reviewed by radiologist; no acute infiltrate seen. X-ray right and left knees that showed degenerative changes with joint space narrowing. Lab Results Reviewed by Me: Yes (d-dimer 0.64, troponin less than 0.012; CRP 6.2 , BNP 872) CBC and BMP: 10/15/17 17:00 10/15/17 17:00 EKG Interpreted/Reviewed By Me:: Yes (atrial fibrillation) EKG Interpretation:: POSITIVE: Normal Rate (Atrial fibrillation with ventricular response 102), Normal Intervals, Normal [place], Normal QRS, Normal ST/ T, Abnormal EKG, Unchanged, Previous EKG Reviewed (Electrocardiogram from 2016 reviewed; this also showed atrial fibrillation and is essentially unchanged from today's electrocardiogram). NEGATIVE: Normal Sinus Rhythm ( Atrial fibrillation with ventricular response of 102) - Patient's Progress Pain Medication Addressed: POSITIVE: Not Applicable Re-Examine Time: 19:30 Re-Examine Comment: Repeat temperature 99.7F. Catheterized urinalysis is normal. DuoNeb given with no appreciable change. Condition is essentially unchanged. Status: POSITIVE: Unchanged, Re-Examined Antibiotics Given: No - Consult Consult (If Yes, Name of Consulting MD & Time Called): Yes (Dr. Silver, hospitalist, [phone]) Consulting MD will see pt:: POSITIVE: [facility] [place] Counseled: POSITIVE: Patient, RE: Lab Results, RE: Radiology Results, RE: DX, RE : Need for F/U Patient Care Time - Estimated PCT Patient Care Time (In Minutes): 65 Vital Signs - Recent Vital Signs Vital Signs: Vital Signs (Last 8 hours) Temp Pulse Resp BP Pulse Ox 10/15/17 16:53 99.3 F 103 H 19 102/83 87 - VS Reviewed Vital Signs Reviewed: Yes Discharge Clinical Impression: Fever, Cough, Knee effusion, left, Knee effusion, right, COPD (chronic obstructive pulmonary disease), Dehydration Discharge Disposition: Admit to Inpatient Condition: Fair Follow Up With: Trina Vega DNP [Primary Care Provider] - Date Decision to Admit to Inpatient: 10/15/17 Time Decision to Admit to Inpatient: 19:40
[2017-10-15] MEDS ORDERED: CALCIUM CARBONATE 500 MG (TUMS) CHEWABLE TABLET PO PRN (20:05)
[2017-10-15] MEDS ORDERED: ONDANSETRON 4 MG/2 ML VIAL IVP PRN (20:05)
[2017-10-15] MEDS ORDERED: ACETAMINOPHEN 325 MG TABLET PO PRN (20:05)
[2017-10-15] MEDS ORDERED: FUROSEMIDE 40 MG TABLET PO SCH (20:05)
[2017-10-15] MEDS ORDERED: ALPRAZolam Tab 0.25 MG TABLET PO PRN (20:05)
[2017-10-15] MEDS ORDERED: NITROGLYCERIN 0.4 MG SL TAB (BOTTLE OF 3) SL PRN (20:05)
[2017-10-15] MEDS ORDERED: DOCUSATE 100 MG CAPSULE PO PRN (20:05)
[2017-10-15] MEDS ORDERED: LIDOCAINE W/ SODIUM BICARB 0.5 ML SYR SUBD PRN (20:05)
[2017-10-15] MEDS: cefTRIAXone Inj 2 GM in Sodium Chloride 0.9% 100 ML IV SCH (20:35)
[2017-10-15] MEDS: AZITHROMYCIN 250 MG TABLET PO SCH (20:36)
[2017-10-15] MEDS: ASPIRIN EC 81 MG TABLET PO SCH (20:36)
[2017-10-15] MEDS: TAMSULOSIN 0.4 MG CAPSULE PO SCH (20:40)
[2017-10-15] MEDS ORDERED: PHYTONADIONE 10 MG/1 ML AMPULE PO ONE (20:47)
[2017-10-15] MEDS ORDERED: CYANOCOBALAMIN 1000 MCG/1 ML VIAL IM ONE (20:54)
[2017-10-15] MEDS ORDERED: Acetaminophen 1000mg Inj 1,000 MG/100 ML VIAL IV PRN (20:56)
[2017-10-15] MEDS ORDERED: DEXTROSE 50%-WATER SYRINGE 50 ML SYRINGE IVP PRN (20:57)
[2017-10-15] MEDS ORDERED: Glucagon Inj Vial 1 MG/ML VIAL IM PRN (20:57)
[2017-10-15] MEDS ORDERED: DEXTROSE 31 GM GEL PO PRN (20:57)
[2017-10-15] MEDS ORDERED: Insulin Sliding Scale Protocol SUBCUT PRN (20:57)
[2017-10-15] MEDS ORDERED: Acetaminophen 1000mg Inj 1,000 MG/100 ML VIAL IV ONE (21:00)
[2017-10-15] MEDS ORDERED: NICOTINE 21 MG /DAY PATCH TRANSDERM ONE (21:00)
[2017-10-15] MEDS ORDERED: Acetaminophen 1000mg Inj 1,000 MG/100 ML VIAL IV SCH (21:00)
[2017-10-15] MEDS ORDERED: CYANOCOBALAMIN 1000 MCG/1 ML VIAL IM SCH (21:00)
--- NOTE | 2017-10-15 21:04 | PDOC ---
HPI - History of Present Illness Date of Service: 10/15/17 Time of Service: 20:59 Chief Complaint: knee pain and cough History of Present Illness: This is a 77 YO male with worsening knee pain, right shoulder pain, and cervical neck pain, that it been progressively worsening over the past week or so. He saw his primary provider, in the [facility] on the and was placed on Xanax for muscle relaxant. That is really not helped although Lyrica has helped tremendously with the patient's pain. His pain was so bad today that his nephew, Amaury, who normally watches over him, argued with the patient and tell the patient decided he would come in by EMS for further evaluation. Upon arrival, he was found to have a low-grade temperature, he was febrile at 100.8 at the scene according to the EMS crew. The patient had joint effusion bilaterally left side slightly greater than right and a diagnostic arthrocentesis was performed that was consistent with an arthritic or inflammatory-type picture. The patient had a cough. He states to me that he's had a daily cough. He is normally not on oxygen. He smokes about 2 packs per day if not more. This really been no significant change in the cough, and a chest x-ray was negative for any pneumonia. He does have phlegm production. He states he is able to move with a walker. According to Amaury, the patient minimizes his joint pain quite frequently and in reality his right shoulder is been the main issue along with his neck pain. The patient tells me he does not take pain pills and he does not take anti-inflammatories but he does take occasional Tylenol which relieves the pain only minimally. He is not interested in surgical approaches. He states to me that he gets injections in his knees and those have helped significantly in the past. He is willing to repeat those when discussing the risks and benefits of knee arthrocentesis and steroid injections. No other exacerbating factors. According to his nephew, the patient has been getting gradually worse over the last several weeks to months in terms of these joint pains. He states that he does not use breathing therapies at home. He does not really have an interest in using them here. Past Medical History Medical History: 1. Diabetes type II on insulin. 2. Hypertension. 3. Atrial fibrillation, on Coumadin for stroke prevention, INR elevated on admission here. 4. Coronary artery disease with CABG years ago. 5. Osteoarthritis. 6. Hyperlipidemia. 7. Sleep apnea. 8. History of cellulitis Surgical History: 1. CABG many years ago. 2. Lumbar spine surgery Family History: Reviewed an Not Pertinent Pertinent Family History: No major history of heart disease or diabetes in the family. Past Social History: Smokes 2 packs per day, doesn't drink alcohol, has 2 children described as healthy. Lives alone in [place], [place]. His daughter , Yuni, used to work here in the kitchen but it apparently is moving to [place]. His nephew, Amaury, takes care of him and manages his medications. Tobacco Use: Heavy Tobacco Smoker (Admits to one and a half packs per day but according to Amaury, 2 packs per day) In the Past 12 Months, Have Used or Abuse Any of the Following Substance: None Alcohol Use: None Medication / Allergies Home Medications: Home Medications 3 Medication Instructions Recorded Confirmed Type Nitroglycerin SL Tab [Nitrostat 1 tab SL ONCE #25 tab 01/18/15 10/15/17 History SL Tab] Syringe and Needle,Insulin,1Ml 1 ea MC BID #100 box 07/18/16 10/15/17 Rx [Easy Comfort Insulin Syringe] Aspirin [Aspir 81] 1 tab PO QD #30 tab 12/03/16 10/15/17 Rx furosemide 40 mg tablet 60 mg PO QDAY #45 tab 04/14/17 10/15/17 Rx alprazolam 0.25 mg tablet 0.25 mg PO BID PRN #60 tab 05/26/17 10/15/17 Rx atorvastatin 20 mg tablet 20 mg PO QHS #30 tab 07/17/17 10/15/17 Rx insulin detemir (U-100) 100 45 unit SUBCUT BID #30 ml 07/17/17 10/15/17 Rx unit/mL subcutaneous solution potassium chloride ER 10 mEq 10 meq PO QDAY #30 cap 07/17/17 10/15/17 Rx capsule,extended release warfarin 10 mg tablet 0.5 - 1 tab PO as directed #60 tab 08/03/17 10/15/17 Rx allopurinol 300 mg tablet 150 mg PO QD #15 tab 08/10/17 10/15/17 Rx empagliflozin 10 mg tablet 10 mg PO QAM #30 tab 09/28/17 10/15/17 Rx pregabalin 50 mg capsule 50 mg PO .QD #30 cap 09/29/17 10/15/17 Rx metformin 1,000 mg tablet 1,000 mg PO BID #60 tab 10/06/17 10/15/17 Rx quinapril 40 mg tablet 40 mg PO QD #30 tab 10/06/17 10/15/17 Rx metoprolol succinate ER 25 mg 25 mg PO QD #30 tab 10/13/17 10/15/17 Rx tablet,extended release 24 hr tamsulosin 0.4 mg capsule 0.4 mg PO QHS #30 cap 10/13/17 10/15/17 Rx Allergies/Adverse Reactions: Allergies 3 Allergy/AdvReac Type Severity Reaction Status Date / Time No Known Allergies Allergy Verified 10/15/17 16:42 Review of Systems - Respiratory Respiratory: REPORTS: Cough, Sputum - Cardiovascular Cardiovascular: REPORTS: Negative System Review - Gastrointestinal Gastrointestinal / Abdominal: REPORTS: Negative System Review - Musculoskeletal Musculoskeletal: REPORTS: Neck Pain, Joint Swelling, Joint Pain - Knees - Neurological Neurologic: REPORTS: Negative System Review Exam - Vitals Vital Signs: Vital Signs Temperature 97.1 F Temperature Source Temporal Artery Scan Pulse Rate [Pulse Oximeter 97 Right] Respiratory Rate 16 Blood Pressure [Right Arm] 120/85 Blood Pressure [Left Arm] 120/85 Pulse Ox 96 Oxygen Flow Rate 6 Oxygen Delivery Method Oxymask Height 5 ft 8 in Weight 242 lb 11.2 oz He is on oxygen mask as he does not tolerate nasal cannula oxygen. - General General Appearance: No Acute Distress, Cooperative - Head Head Exam: Normal Inspection, Normocephalic, Atraumatic - Eye Eye Exam: POSITIVE: No Scleral Icterus - ENT ENT Exam: POSITIVE: Mucous Membranes Dry - Neck Neck Exam: Normal Inspection, No Tenderness, No Lymphadenopathy, No Thyromegaly , JVP is not Raised - Respiratory Respiratory Exam: POSITIVE: Breathing Non Labored, Wheezes Additional Respiratory Exam Details: Reddened scan and blistering in the lower back region, patient attributed this to his diabetes medications, orals - Cardiovascular Cardiovascular Exam: POSITIVE: RRR, No Murmur, No Clicks, No Gallops, No Rubs, No JVD - GI/Abdominal GI/Abdominal Exam: POSITIVE: Normal Bowel Sounds, Non Tender, Non Distended, Soft - Rectal Rectal Exam: POSITIVE: Deferred - External Exam: POSITIVE: Deferred - Extremities Extremities Exam: POSITIVE: No Cyanosis Present, Clubbing Present, +1 Edema Additional Extremities Exam Details: Nicotine staining on fingers and at fingertips. - Neurological Neurological Exam: POSITIVE: Alert, Oriented x 3, No Facial Droop, Speech Intact / Clear, Moves All Extremities Equally - Psychiatric Psychiatric Exam: POSITIVE: Normal Affect, Normal Mood Results - Labs CBC and BMP: 10/15/17 17:00 10/15/17 17:00 Additional Lab Results: Laboratory Results 10/15/17 10/15/17 10/15/17 Range/Units 17:00 17:00 17:00 WBC 11.40 H (4.8-10.8) 10^3/uL RBC 5.73 (4.70-6.10) 10^6/uL Hgb 16.9 (14.0-18.0) g/dL Hct 51.1 (42.0-52.0) % MCV 89.2 (80-90) FL MCH 29.5 (27-31) PG MCHC 33.1 (33-37) g/dL RDW Std Deviation 54.9 H (39-50) fL RDW Coeff of Parminder 16.9 H (11.5-14.5) % Plt Count 238 (140-350) 10*3/uL MPV 9.4 (7.4-12.2) FL Immature Gran % (Auto) 0.4 (0-5) % Neut % (Auto) 82.3 H (50-80) % Lymph % (Auto) 6.0 L (10-50) % [place] % (Auto) 11.0 (5-15) % Eos % (Auto) 0.1 (0-8) % Baso % (Auto) 0.2 (0-1) % Immature Gran # (Auto) 0.04 10*3/UL Neut # (Auto) 9.40 10*3/UL Lymph # (Auto) 0.68 10*3/uL [place] # (Auto) 1.25 H (0.3-0.8) 10*3/UL Eos # (Auto) 0.01 10*3/UL Baso # (Auto) 0.02 10*3/UL WBC Morphology Comment Normal morphology (NORM) Plt Morphology Comment Normal morphology (NORM) RBC Morph Comment Normal morphology (NORM) PT (9.7-11.4) secs INR (0.00-5.90) N/A D-Dimer 0.64 H (0.00-0.59) mg/L VBG pH (7.32-7.42) VBG pCO2 (45-55) mmHg VBG HCO3 (22-26) mmol/L VBG Base Excess (-2-2) MMOL/L Sodium 132 L (135-145) meq/L Potassium 4.6 (3.8-5.2) meq/L Chloride 90 L (98-112) meq/L Carbon Dioxide 32 (23-33) meq/L Anion Gap 10 (5-20) BUN 41 H (7-22) mg/dL Creatinine 1.4 (0.70-1.50) mg/dL BUN/Creatinine Ratio 29.28 H (6-20) Glucose 107 (78-110) mg/dL Calculated Osmolality 283.0 (267-292) mOsm/kg Lactic Acid (0.70-2.10) MMOL/L Calcium 9.3 (8.7-10.7) mg/dL Total Bilirubin 0.8 (0.3-1.2) mg/dL AST 45 (21-57) IU/L ALT 29 (21-72) IU/L Alkaline Phosphatase 82 (38-126) IU/L Total Creatine Kinase 174 H (55-170) IU/L Troponin I (< 0.040) ng/mL C-Reactive Protein 6.2 H (0.0-0.9) mg/dL NT-Pro-B Natriuret Pep 872 H (0-450) PG/ML Total Protein 7.4 (6.1-8.0) g/dL Albumin 3.9 (3.5-4.8) g/dL Globulin 3.6 (2.50-4.10) g/dL Albumin/Globulin Ratio 1.00 L (1.3-2.0) mg/g Ur Collection Type Urine Color (Y) Urine Clarity (CLEAR) Urine pH (5.0-8.5) Ur Specific [place] (1.005-1.030) Urine Protein (NEG) mg/dl Urine Glucose (UA) (NEG) mg/dL Urine Ketones (NEG) Urine Occult Blood (NEG) Urine Nitrate (NEG) Urine Bilirubin (NEG) Urine Urobilinogen (0.2) EU/dL Ur Leukocyte Esterase (NEG) Ur Culture Indicated? Synovial Color (CLR, STRW) Synovial Appearance (CLEAR, STRA) Synovial Volume mL Synovial WBC 10^3/uL Synovial Neutrophils % Synovial Monocytes % Synovial Crystals (NS) 10/15/17 10/15/17 10/15/17 Range/Units 17:00 17:00 17:00 WBC (4.8-10.8) 10^3/uL RBC (4.70-6.10) 10^6/uL Hgb (14.0-18.0) g/dL Hct (42.0-52.0) % MCV (80-90) FL MCH (27-31) PG MCHC (33-37) g/dL RDW Std Deviation (39-50) fL RDW Coeff of Parminder (11.5-14.5) % Plt Count (140-350) 10*3/uL MPV (7.4-12.2) FL Immature Gran % (Auto) (0-5) % Neut % (Auto) (50-80) % Lymph % (Auto) (10-50) % [place] % (Auto) (5-15) % Eos % (Auto) (0-8) % Baso % (Auto) (0-1) % Immature Gran # (Auto) 10*3/UL Neut # (Auto) 10*3/UL Lymph # (Auto) 10*3/uL [place] # (Auto) (0.3-0.8) 10*3/UL Eos # (Auto) 10*3/UL Baso # (Auto) 10*3/UL WBC Morphology Comment (NORM) Plt Morphology Comment (NORM) RBC Morph Comment (NORM) PT 45.4 H (9.7-11.4) secs INR 4.22 (0.00-5.90) N/A D-Dimer (0.00-0.59) mg/L VBG pH (7.32-7.42) VBG pCO2 (45-55) mmHg VBG HCO3 (22-26) mmol/L VBG Base Excess (-2-2) MMOL/L Sodium (135-145) meq/L Potassium (3.8-5.2) meq/L Chloride (98-112) meq/L Carbon Dioxide (23-33) meq/L Anion Gap (5-20) BUN (7-22) mg/dL Creatinine (0.70-1.50) mg/dL BUN/Creatinine Ratio (6-20) Glucose (78-110) mg/dL Calculated Osmolality (267-292) mOsm/kg Lactic Acid 1.7 (0.70-2.10) MMOL/L Calcium (8.7-10.7) mg/dL Total Bilirubin (0.3-1.2) mg/dL AST (21-57) IU/L ALT (21-72) IU/L Alkaline Phosphatase (38-126) IU/L Total Creatine Kinase (55-170) IU/L Troponin I < 0.012 (< 0.040) ng/mL C-Reactive Protein (0.0-0.9) mg/dL NT-Pro-B Natriuret Pep (0-450) PG/ML Total Protein (6.1-8.0) g/dL Albumin (3.5-4.8) g/dL Globulin (2.50-4.10) g/dL Albumin/Globulin Ratio (1.3-2.0) mg/g Ur Collection Type Urine Color (Y) Urine Clarity (CLEAR) Urine pH (5.0-8.5) Ur Specific [place] (1.005-1.030) Urine Protein (NEG) mg/dl Urine Glucose (UA) (NEG) mg/dL Urine Ketones (NEG) Urine Occult Blood (NEG) Urine Nitrate (NEG) Urine Bilirubin (NEG) Urine Urobilinogen (0.2) EU/dL Ur Leukocyte Esterase (NEG) Ur Culture Indicated? Synovial Color (CLR, STRW) Synovial Appearance (CLEAR, STRA) Synovial Volume mL Synovial WBC 10^3/uL Synovial Neutrophils % Synovial Monocytes % Synovial Crystals (NS) 10/15/17 10/15/17 10/15/17 Range/Units 17:17 18:15 18:44 WBC (4.8-10.8) 10^3/uL RBC (4.70-6.10) 10^6/uL Hgb (14.0-18.0) g/dL Hct (42.0-52.0) % MCV (80-90) FL MCH (27-31) PG MCHC (33-37) g/dL RDW Std Deviation (39-50) fL RDW Coeff of Parminder (11.5-14.5) % Plt Count (140-350) 10*3/uL MPV (7.4-12.2) FL Immature Gran % (Auto) (0-5) % Neut % (Auto) (50-80) % Lymph % (Auto) (10-50) % [place] % (Auto) (5-15) % Eos % (Auto) (0-8) % Baso % (Auto) (0-1) % Immature Gran # (Auto) 10*3/UL Neut # (Auto) 10*3/UL Lymph # (Auto) 10*3/uL [place] # (Auto) (0.3-0.8) 10*3/UL Eos # (Auto) 10*3/UL Baso # (Auto) 10*3/UL WBC Morphology Comment (NORM) Plt Morphology Comment (NORM) RBC Morph Comment (NORM) PT (9.7-11.4) secs INR (0.00-5.90) N/A D-Dimer (0.00-0.59) mg/L VBG pH 7.39 (7.32-7.42) VBG pCO2 46 (45-55) mmHg VBG HCO3 28 H (22-26) mmol/L VBG Base Excess 3 H (-2-2) MMOL/L Sodium (135-145) meq/L Potassium (3.8-5.2) meq/L Chloride (98-112) meq/L Carbon Dioxide (23-33) meq/L Anion Gap (5-20) BUN (7-22) mg/dL Creatinine (0.70-1.50) mg/dL BUN/Creatinine Ratio (6-20) Glucose (78-110) mg/dL Calculated Osmolality (267-292) mOsm/kg Lactic Acid (0.70-2.10) MMOL/L Calcium (8.7-10.7) mg/dL Total Bilirubin (0.3-1.2) mg/dL AST (21-57) IU/L ALT (21-72) IU/L Alkaline Phosphatase (38-126) IU/L Total Creatine Kinase (55-170) IU/L Troponin I (< 0.040) ng/mL C-Reactive Protein (0.0-0.9) mg/dL NT-Pro-B Natriuret Pep (0-450) PG/ML Total Protein (6.1-8.0) g/dL Albumin (3.5-4.8) g/dL Globulin (2.50-4.10) g/dL Albumin/Globulin Ratio (1.3-2.0) mg/g Ur Collection Type Voided specimen Urine Color Yellow (Y) Urine Clarity Clear (CLEAR) Urine pH 5.0 (5.0-8.5) Ur Specific [place] 1.010 (1.005-1.030) Urine Protein Negative (NEG) mg/dl Urine Glucose (UA) 500 (NEG) mg/dL Urine Ketones Negative (NEG) Urine Occult Blood Negative (NEG) Urine Nitrate Negative (NEG) Urine Bilirubin Negative (NEG) Urine Urobilinogen 0.2 (0.2) EU/dL Ur Leukocyte Esterase Negative (NEG) Ur Culture Indicated? Culture not set Synovial Color Yellow (CLR, STRW) Synovial Appearance Hazy (CLEAR, STRA) Synovial Volume 20 mL Synovial WBC 36.53 10^3/uL Synovial Neutrophils 95.0 % Synovial Monocytes 5.0 % Synovial Crystals None seen (NS) - EKG Data -: EKG Interpreted by Me - EKG Data EKG Interpretation: Other (Atrial fibrillation) - Imaging Status: Image Reviewed by Me (Chest x-ray, shows cardiomegaly, senescent changes of prior CABG, no evidence of pneumonia.) AFib Stroke Risk Screening - AFib Stroke Risk (CHADS-VASc) Atrial Fibrillation Ischemic Stroke Risk Factors: Hypertension, Diabetes Mellitus, Age 75 years or older CHADS-VASc Score (A-Fib Stroke Risk Score): 4 CHADS-VASc Risk: High Risk (Patient is already on Coumadin, supratherapeutic.) Assessment and Plan - Patient Problems (1) COPD exacerbation Current Visit: Yes Status: Acute Code(s): J44.1 - Chronic obstructive pulmonary disease with (acute) exacerbation (2) Osteoarthritis Current Visit: Yes Status: Acute Code(s): M19.90 - Unspecified osteoarthritis, unspecified site Qualifiers: Osteoarthritis location: multiple joints Osteoarthritis type: primary Qualified Code(s): M15.0 - Primary generalized (osteo)arthritis (3) Diabetes mellitus Current Visit: Yes Status: Acute Code(s): E11.9 - Type 2 diabetes mellitus without complications Qualifiers: Diabetes mellitus type: type 2 Diabetes mellitus intermediate manager insulin use: with residential use Diabetes mellitus complication status: with neurologic complications Diabetes mellitus complication detail: with autonomic neuropathy Qualified Code(s): E11.43 - Type 2 diabetes mellitus with diabetic autonomic (poly)neuropathy; Z79.4 - longterm (current) use of insulin (4) Neck pain Current Visit: Yes Status: Acute Code(s): M54.2 - Cervicalgia (5) Hypertension Current Visit: Yes Status: Acute Code(s): I10 - Essential (primary) hypertension Qualifiers: Hypertension type: essential hypertension Qualified Code(s): I10 - Essential (primary) hypertension (6) Coronary artery disease Current Visit: Yes Status: Chronic Code(s): I25.10 - Atherosclerotic heart disease of [place] coronary artery without angina pectoris Qualifiers: Coronary Disease-Associated Artery/Lesion type: [place] artery Associated angina: without angina (7) Atrial fibrillation Current Visit: Yes Status: Chronic Code(s): I48.91 - Unspecified atrial fibrillation Qualifiers: Atrial fibrillation type: chronic Qualified Code(s): I48.2 - Chronic atrial fibrillation - Assessment / Plan Additional Assessment/Plan Details: This is a 77-year-old male with multiple chronic medical issues with probable acute exacerbation of COPD that is causing what sounds like a slightly worsened cough with phlegm production and fever. He has significant osteo-arthritis with what appears to be an inflammatory component and effusions bilaterally in his knees. He is supratherapeutic on his Coumadin. Admit the patient. Give antibiotics and steroids for COPD exacerbation. Hopefully convert to by mouth and finish a 5 day course of antibiotics and steroids. This may also help the knee pain and neck pain. I think overall his pain is likely related to osteoarthritis as he's had a prior x-ray of his right shoulder that showed degenerative changes in 2016. Cervical x-ray, right shoulder x-ray, knee x-rays already show 3 compartment osteoarthritis. I don't think it's worth it to change the Coumadin to any of the novel oral anticoagulants as the patient could not afford them in the past. However with an INR greater than 2, I think we should get that down to at least between 1-2 before we do any knee injections. I'll give a dose of vitamin K and hold Coumadin tonight. I have written for INR studies to be done in the morning. Telemetry monitoring tonight, if atrial fibrillation stays rate controlled, may discontinue telemetry monitoring tomorrow Intermittent oxygen monitoring. We'll check labs in a.m. Would probably benefit from the knee injections when his INR is under better control as to not cause a hemarthrosis. Patient is DO NOT RESUSCITATE. Stop his oral diabetes medications. He has blistering from this and having a rash and I don't know which oral medication and is although likely related to his most recent oral diabetic medication. I think his medication regimen is very complicated and he would probably benefit from just managing his diabetes with insulin at this point. I discussed with Amaury who helps manage his medications and he agreed. He does think that the Lyrica helped significantly and does not want to see that change. Stop the Xanax that was given as a muscle relaxant and I see no indication for that. Plan above discussed with the patient and his nephew and they agreed. I tried to call the patient's daughter, Yuni, but she was unavailable for discussion of this case kendrick.
[2017-10-15] MEDS: methylPREDNISolone 125 MG/2 ML VIAL IVP SCH (21:41)
[2017-10-15] MEDS: Sodium Chloride 0.9% 1,000 ML IV SCH (21:52)
[2017-10-15] MEDS: Insulin Detemir 300unit/3ml Flexpen SUBCUT SCH (23:11)
[2017-10-15] MEDS: Insulin Lispro Flexpen 300 UNIT/3 ML INSULN.PEN SUBCUT SCH (23:12)
[2017-10-16] MEDS: methylPREDNISolone 125 MG/2 ML VIAL IVP SCH ×4 (02:41→20:50)
[2017-10-16 04:39] LABS: BASOPHILS # (AUTO) 0.01 10*3/UL; BASOPHILS % (AUTO) 0.1 % (0-1); EOSINOPHILS # (AUTO) 0 10*3/UL; EOSINOPHILS % (AUTO) 0 % (0-8); Hematocrit [HCT] 51.6 % (42.0-52.0); Hemoglobin [HGB] 17.1 g/dL (14.0-18.0); LYMPHOCYTES # (AUTO) 0.41 10*3/uL; MEAN CORPUSCULAR HEMOGLOBIN 29.3 PG (27-31); MEAN CORPUSCULAR HGB CONC 33.1 g/dL (33-37); MEAN CORPUSCULAR VOLUME 88.4 FL (80-90); MEAN PLATELET VOLUME 9.7 FL (7.4-12.2); MONOCYTES # (AUTO) 0.35 10*3/UL (0.3-0.8); MONOCYTES % (AUTO) 2.9 % (5-15); NEUTROPHILS # (AUTO) 11.28 10*3/UL; NEUTROPHILS % (AUTO) 93.4 % (50-80); RED BLOOD COUNT 5.84 10^6/uL (4.70-6.10)
[2017-10-16 04:45] LABS: BLOOD UREA NITROGEN 38 mg/dL (7-22); BUN/CREATININE RATIO 31.66 (6-20)
[2017-10-16 04:59] LABS: PLATELET MORPHOLOGY COMMENT NORMAL MORPHOLOGY (NORM); RBC MORPHOLOGY COMMENT NORMAL MORPHOLOGY (NORM); WBC MORPHOLOGY COMMENT NORMAL MORPHOLOGY (NORM)
[2017-10-16] MEDS: Insulin Lispro Flexpen 300 UNIT/3 ML INSULN.PEN SUBCUT SCH ×4 (06:44→20:51)
[2017-10-16] MEDS ORDERED: NICOTINE 21 MG /DAY PATCH TRANSDERM SCH (09:00)
[2017-10-16] MEDS ORDERED: FUROSEMIDE 20 MG TABLET ONE (09:03)
[2017-10-16] MEDS: Insulin Detemir 300unit/3ml Flexpen SUBCUT SCH ×2 (09:04→20:51)
[2017-10-16] MEDS: ENOXAPARIN SODIUM 40 MG/0.4 ML SYRINGE SUBCUT SCH (09:04)
[2017-10-16] MEDS: QUINAPRIL 20 MG TABLET PO SCH (09:05)
[2017-10-16] MEDS: METOPROLOL SUCCINATE 25 MG SR 24H TABLET PO SCH (09:05)
[2017-10-16] MEDS: ASPIRIN EC 81 MG TABLET PO SCH (09:05)
[2017-10-16] MEDS: Potassium Chloride Tab 10 MEQ TAB PO SCH (09:05)
[2017-10-16] MEDS: ALLOPURINOL 300 MG TABLET PO SCH (09:05)
[2017-10-16] MEDS: PREGABALIN 50 MG PO SCH ×2 (09:06→14:57)
[2017-10-16] MEDS: Sodium Chloride 0.9% 1,000 ML IV SCH (10:11)
[2017-10-16] MEDS ORDERED: LIDOCAINE 2% 20 MG/ML - 20 ML VIAL SUBCUT ONE (11:32)
--- NOTE | 2017-10-16 11:32 | PDOC(PROG) ---
Date and Time of Service: 10/16/2017, 11:30 Interval History: States he does need pain and would be willing to do steroid injections in his knees. No chest pain. Breathing is okay. He is requiring around 2-3 L of nasal cannula oxygen but refuses to use it at home. He still smokes upwards of 2 packs per day. No nausea or vomiting. Objective : Data - Labs CBC and BMP: 10/16/17 04:03 10/16/17 04:03 Additional Lab Results: 10/16/17 10/16/17 04:03 04:03 PT 27.5 H INR 2.57 Calcium 8.8 Objective : Exam - General General Appearance: No Acute Distress, Cooperative Additional General Exam Details: Vital Signs - Last Taken Temperature 97.3 F 10/16/17 08:37 Pulse Rate 86 10/16/17 08:37 Respiratory Rate 18 10/16/17 08:37 Blood Pressure 110/55 10/16/17 08:37 Pulse Ox 95 10/16/17 08:37 - Head Head Exam: Normal Inspection, Normocephalic, Atraumatic - Eye Eye Exam: No Scleral Icterus - ENT ENT Exam: Mucous Membranes Moist - Respiratory Respiratory Exam: Breathing Non Labored, Coarse Breath Sounds - Cardiovascular Cardiovascular Exam: RRR, No Murmur, No Clicks, No Gallops, No Rubs, No JVD - GI/Abdominal GI/Abdominal Exam: Normal Bowel Sounds, Non Tender, Non Distended, Soft - Extremities Extremities Exam: No Edema Present, No Cyanosis Present, Clubbing Present - Back Additional Back Exam Details: Rashes significantly better today, redness is decreased markedly coming off of the oral diabetic medications. Blistering looks okay none ruptured in the midline, ruptured on the left flank but clean, dry and not infected. - Neurological Neurological Exam: Alert, Oriented x 3, No Facial Droop, Speech Intact / Clear, Moves All Extremities Equally Assessment and Plan - Patient Problems (1) COPD exacerbation Current Visit: Yes Status: Acute Code(s): J44.1 - Chronic obstructive pulmonary disease with (acute) exacerbation (2) Osteoarthritis Current Visit: Yes Status: Acute Code(s): M19.90 - Unspecified osteoarthritis, unspecified site Qualifiers: Osteoarthritis location: multiple joints Osteoarthritis type: primary Qualified Code(s): M15.0 - Primary generalized (osteo)arthritis (3) Diabetes mellitus Current Visit: Yes Status: Acute Code(s): E11.9 - Type 2 diabetes mellitus without complications Qualifiers: Diabetes mellitus type: type 2 Diabetes mellitus long-term insulin use: with termite control service representative use Diabetes mellitus complication status: with neurologic complications Diabetes mellitus complication detail: with autonomic neuropathy Qualified Code(s): E11.43 - Type 2 diabetes mellitus with diabetic autonomic (poly)neuropathy; Z79.4 - prison (current) use of insulin (4) Neck pain Current Visit: Yes Status: Acute Code(s): M54.2 - Cervicalgia (5) Hypertension Current Visit: Yes Status: Acute Code(s): I10 - Essential (primary) hypertension Qualifiers: Hypertension type: essential hypertension Qualified Code(s): I10 - Essential (primary) hypertension (6) Coronary artery disease Current Visit: Yes Status: Chronic Code(s): I25.10 - Atherosclerotic heart disease of [place] coronary artery without angina pectoris Qualifiers: Coronary Disease-Associated Artery/Lesion type: three affiliated artery Associated angina: without angina (7) Atrial fibrillation Current Visit: Yes Status: Chronic Code(s): I48.91 - Unspecified atrial fibrillation Qualifiers: Atrial fibrillation type: chronic Qualified Code(s): I48.2 - Chronic atrial fibrillation - Assessment / Plan Additional Assessment/Plan Details: Continue Rocephin and Zithromax. Continue steroids. Hold off on breathing therapies as patient does not want to try them. Injections for both knees. Get x-rays of shoulder and neck. If all goes well, likely consider discharge with short course of Zithromax and steroids tomorrow. Stop oral medications for diabetes due to rashes and drug allergy. Oxygen when necessary here.
[2017-10-16 13:27] VITALS: RESP 20
--- NOTE | 2017-10-16 13:56 | DI ---
RIGHT SHOULDER, 10/16/2017 12:21 PM: Clinical History: Right shoulder pain and arthritis. Previous Exam: 04/11/2016. 2 views are submitted. The bony densities seen on the previous film in the rotator cuff are still fel t to be present although the projections are slightly different. Mild degenerative change of the lora ohumeral joint is present. The visualized portions of the right lung are normal. Readin. Mild degenerative arthritic change of the AC joint is present. 2. The calcium deposits in the rotator cuff are still felt to be present, consistent with calcific t endinitis.
[2017-10-16] MEDS: BETAMET ACET/BETAMET NA PH 6 MG/1 ML - 5 ML IM SCH (14:15)
--- NOTE | 2017-10-16 14:37 | PROCEDURE1 ---
Procedure - - Procedure Performed: Arthrocentesis : Intermediate Joint without US Guidance Procedure Note: Procedure Performed: Therapeutic Arthrocentesis, Knee, bilaterally Date Procedure Performed: 10/16/2017 Indications for Procedure: 1. osteoarthritis bilaterally 2. effusion present bilaterally left greater than right Risks and Benefits: Risks described as bleeding, infection, or skin necrosis, and benefits as pain relief, the patient consented to have the knee aspiration done. Anesthesia: Local, 2% Xylocaine, 5 mL Description of Procedure: Patient was prepped and draped in usual fashion. Using a lateral approach, a 1- 1/2 inch 25-gauge needle attached to a 12 mL syringe was inserted into the right knee joint, containing 5 mL of 2% Xylocaine and 1 mL of 30 mg Celestone per 5 mL (6 mg). This solution was injected into the knee joint. The needle was withdrawn the area was cleansed with alcohol swabs. Hemostasis was achieved. A Band-Aid was applied. After the procedure is done, the patient reported improvement in his pain. Complications: None apparent at time of procedure Disposition: patient remains admitted to the medical floor.
--- NOTE | 2017-10-16 14:47 | DI ---
CERVICAL SPINE SERIES, 10/16/2017 12:21 PM: Clinical History: Neck pain with radiation to the right shoulder. Previous Exam: None at this facility. AP and lateral views are submitted. A swimmer's lateral view was attempted but the patient is unstabl e to tolerate this view. The vertebral bodies are visualized down to C6 and those vertebral bodies ar e of normal height and size. The C2-3 and C3-4 disc spaces are of normal height. There is severe arth ritic change at C4-5 with anterior and posterior bony proliferative change with severe disc space ghislaine rowing. Severe disc space narrowing is present at C5-6. The lower disc spaces are not visualized. The re is anterior subluxation of C3 on C4 by 1-2 mm. With severe arthritic changes are present in the un covertebral and zygapophyseal joints bilaterally between C4-5 through C6-7. C1 articulates normally w ith C2 and the occiput. Prevertebral soft tissue planes are normal. Readin. Technically limited study because of the patient's inability to remain still during filming. A la teral swimmer's view could not be obtained. The vertebral bodies are visualized on the lateral view o nly down to C6. 2. Severe disc space narrowing at C4-5 and C5-6. Arthritic changes are present in the uncovertebral joints and the zygapophyseal joints between C4-5 and C6-7 bilaterally. 3. The C2-3 and C3-4 disc spaces are of normal height but there is anterior subluxation of C3 on C4 by 1-2 mm.
[2017-10-16] MEDS ORDERED: Insulin Lispro Flexpen 300 UNIT/3 ML INSULN.PEN SUBCUT ONE ×2 (16:21→17:24)
[2017-10-16] MEDS: cefTRIAXone Inj 2 GM in Sodium Chloride 0.9% 100 ML IV SCH (19:59)
[2017-10-16] MEDS: TAMSULOSIN 0.4 MG CAPSULE PO SCH (20:50)
[2017-10-16] MEDS: AZITHROMYCIN 250 MG TABLET PO SCH (20:50)
[2017-10-16] MEDS ORDERED: ALPRAZolam Tab 0.25 MG TABLET PO ONE (23:30)
[2017-10-17] MEDS: methylPREDNISolone 125 MG/2 ML VIAL IVP SCH ×2 (03:58→09:40)
[2017-10-17] MEDS: Insulin Lispro Flexpen 300 UNIT/3 ML INSULN.PEN SUBCUT SCH ×2 (06:47→11:31)
[2017-10-17] MEDS: ENOXAPARIN SODIUM 40 MG/0.4 ML SYRINGE SUBCUT SCH (08:46)
[2017-10-17] MEDS: QUINAPRIL 20 MG TABLET PO SCH (08:48)
[2017-10-17] MEDS: ASPIRIN EC 81 MG TABLET PO SCH (08:48)
[2017-10-17] MEDS: ALLOPURINOL 300 MG TABLET PO SCH (08:48)
[2017-10-17] MEDS: METOPROLOL SUCCINATE 25 MG SR 24H TABLET PO SCH (08:49)
[2017-10-17] MEDS: Potassium Chloride Tab 10 MEQ TAB PO SCH (08:49)
[2017-10-17] MEDS: Insulin Detemir 300unit/3ml Flexpen SUBCUT SCH (08:52)
[2017-10-17] MEDS: PREGABALIN 50 MG PO SCH (09:39)
--- NOTE | 2017-10-17 11:18 | DCSUMMARY ---
Hospitalization Summary Admit Date: 10/15/2017 Discharge Date: 10/17/17 Primary Diagnosis:: mild COPD exacerbation, improved Secondary Diagnosis:: Bilateral knee osteoarthritis. Hospital Course: This very pleasant 77-year-old male with multiple medical issues including COPD , osteoarthritis, coronary artery disease post CABG, hypertension, diabetes mellitus type II, poorly controlled, who was admitted in the setting of fever and cough and presumed lung infection. His main complaint to me however was bilateral knee pain and right shoulder pain. We did x-ray all the joints involved including the right shoulder, bilateral knees, and his neck, and found significant arthritic changes in all these areas. We didn't knee injections at bedside after the patient consented knowing the risks and benefits and that really helped his pain overall. Today feels a little worse with that just because the lidocaine has worn off, but the steroid I think I'll set him in the next 24 hours and help his knees feel much better. In terms of the COPD exacerbation we managed him with burst steroids and Zithromax and Rocephin in the improved very quickly. He refuses to wear oxygen at home and will not take oxygen at home. We will continue Zithromax for 3 more days. I think we are safe enough at this point to stop steroids. In terms of his right shoulder recommended that he see Dr. Fuentes for injection of the right shoulder. If his neck pain persists I recommended that they see a neurosurgeon. The patient's Coumadin was over 4 when he came in for evaluation. We did not do knee injections until the Coumadin was between 2 and 3. It is now just over one is ready given some vitamin K. I will keep the patient on the same Coumadin dosing and would recommend that his Coumadin not be adjusted aggressively over the next week because of the vitamin K. The patient had no evidence of hemarthrosis here. Synovial fluid was negative for infection. I will note that the patient had a rash with blistering in his skin. I think this is related to jardiance. His kidney function was around 1.4 on admission he was a little on the dry side and fluids helped improve that. I think he is not a very good candidate for metformin so we went to a strategy adjust insulin for his diabetes. We will increase the Levemir to 50 units twice daily and add 5 units of Humalog at mealtimes. This may need to be adjusted, but I will defer that to primary provider. Today, no completes of chest pain, shortness breath, nausea or vomiting. The patient really wants to go home. He is moving his knees are easier today although he states that they still hurt. He states that yesterday they were pain free after the injections. Assessment and Plan: 1. As per discharge assessments noted 2. Disposition: Patient is discharged home. 3. Condition on discharge, stable and improved. 4. Diet: regular diet 5. Activities: resume normal activities 6. Follow-Up: 1. See Trina in the [place] [facility] in one week 2. 7. Medications at the Time of Discharge: Home Medications 3 Medication Instructions Recorded Confirmed Type Nitroglycerin SL Tab [Nitrostat 1 tab SL ONCE #25 tab 01/18/15 10/15/17 History SL Tab] Syringe and Needle,Insulin,1Ml 1 ea MC BID #100 box 07/18/16 10/15/17 Rx [Easy Comfort Insulin Syringe] Aspirin [Aspir 81] 1 tab PO QD #30 tab 12/03/16 10/15/17 Rx furosemide 40 mg tablet 60 mg PO QDAY #45 tab 04/14/17 10/15/17 Rx atorvastatin 20 mg tablet 20 mg PO QHS #30 tab 07/17/17 10/15/17 Rx potassium chloride ER 10 mEq 10 meq PO QDAY #30 cap 07/17/17 10/15/17 Rx capsule,extended release warfarin 10 mg tablet 0.5 - 1 tab PO as directed #60 tab 08/03/17 10/15/17 Rx allopurinol 300 mg tablet 150 mg PO QD #15 tab 08/10/17 10/15/17 Rx pregabalin 50 mg capsule 50 mg PO .QD #30 cap 09/29/17 10/15/17 Rx quinapril 40 mg tablet 40 mg PO QD #30 tab 10/06/17 10/15/17 Rx metoprolol succinate ER 25 mg 25 mg PO QD #30 tab 10/13/17 10/15/17 Rx tablet,extended release 24 hr tamsulosin 0.4 mg capsule 0.4 mg PO QHS #30 cap 10/13/17 10/15/17 Rx Azithromycin [Zithromax] 500 mg PO BEDTIME #3 tab 10/17/17 Rx Cyanocobalamin Inj [Vitamin B-12 1,000 mcg IM Q30D #1 vial 10/17/17 Rx Inj] Insulin Detemir Flexpen Inj 50 unit SUBCUT BEDTIME insuln.pen 10/17/17 Rx [Levemir Flexpen Inj] Insulin Detemir Flexpen Inj 50 unit SUBCUT DAILY@0900 10/17/17 Rx [Levemir Flexpen Inj] insuln.pen Insulin Lispro Flexpen Inj 5 unit SUBCUT AC #1 insuln.pen 10/17/17 Rx [HumaLOG Flexpen Inj] 8. Time, care, counseling and coordination of care for this discharge is less than 30 minutes. Exam - Vitals Vital Signs: Vital Signs Temperature 97.2 F Temperature Source Temporal Artery Scan Pulse Rate [Telemetry] 78 Pulse Rate [Pulse Oximeter 71 Right] Pulse Rate 70 Respiratory Rate 20 Blood Pressure [Right Arm] 105/48 Blood Pressure [Left Arm] 120/85 Blood Pressure 93/51 Pulse Ox 97 Oxygen Flow Rate 3 Oxygen Delivery Method Nasal Cannula Height 5 ft 8 in Weight 240 lb 14.4 oz - General General Appearance: No Acute Distress, Cooperative - Head Head Exam: Normal Inspection, Normocephalic, Atraumatic - Eye Eye Exam: POSITIVE: No Scleral Icterus - ENT ENT Exam: POSITIVE: Mucous Membranes Moist - Respiratory Respiratory Exam: POSITIVE: Breathing Non Labored, Wheezes, Coarse Breath Sounds - Cardiovascular Cardiovascular Exam: POSITIVE: RRR, No Murmur, No Clicks, No Gallops, No Rubs, No JVD - GI/Abdominal GI/Abdominal Exam: POSITIVE: Normal Bowel Sounds, Non Tender, Non Distended, Soft - Extremities Extremities Exam: POSITIVE: No Edema Present, No Cyanosis Present, Clubbing Present - Neurological Neurological Exam: POSITIVE: Alert, Oriented x 3, No Facial Droop, Speech Intact / Clear, Moves All Extremities Equally Data Peritnent Studies: Selected Entries 10/17/17 04:29 10/17/17 06:26 Finger Stick Blood Glucose 134 H 149 H 10/16/17 10/16/17 10/17/17 04:03 04:03 04:15 WBC 12.07 H Hgb 17.1 Hct 51.6 Plt Count 215 Neut % (Auto) 93.4 H PT 12.0 H INR 1.13 Sodium 132 L Potassium 4.3 Chloride 93 L Carbon Dioxide 22 L Anion Gap 17 BUN 38 H Creatinine 1.2 BUN/Creatinine Ratio 31.66 H Glucose 168 H Calculated Osmolality 286.0 Calcium 8.8 Patient Problems - Patient Problem List (1) COPD exacerbation Current Visit: Yes Status: Acute Code(s): J44.1 - Chronic obstructive pulmonary disease with (acute) exacerbation Category: Medical (2) Osteoarthritis Current Visit: Yes Status: Acute Code(s): M19.90 - Unspecified osteoarthritis, unspecified site Qualifiers: Osteoarthritis location: multiple joints Osteoarthritis type: primary Qualified Code(s): M15.0 - Primary generalized (osteo)arthritis Category: Medical (3) Diabetes mellitus Current Visit: Yes Status: Acute Code(s): E11.9 - Type 2 diabetes mellitus without complications Qualifiers: Diabetes mellitus type: type 2 Diabetes mellitus cognos bi administrator insulin use: with [facility] use Diabetes mellitus complication status: with neurologic complications Diabetes mellitus complication detail: with autonomic neuropathy Qualified Code(s): E11.43 - Type 2 diabetes mellitus with diabetic autonomic (poly)neuropathy; 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 Category: Medical (4) Neck pain Current Visit: Yes Status: Acute Code(s): M54.2 - Cervicalgia Category: Medical (5) Hypertension Current Visit: Yes Status: Acute Code(s): I10 - Essential (primary) hypertension Qualifiers: Hypertension type: essential hypertension Qualified Code(s): I10 - Essential (primary) hypertension Category: Medical (6) Coronary artery disease Current Visit: Yes Status: Chronic Code(s): I25.10 - Atherosclerotic heart disease of [place] coronary artery without angina pectoris Qualifiers: Coronary Disease-Associated Artery/Lesion type: [place] artery Associated angina: without angina Category: Medical (7) Atrial fibrillation Current Visit: Yes Status: Chronic Code(s): I48.91 - Unspecified atrial fibrillation Qualifiers: Atrial fibrillation type: chronic Qualified Code(s): I48.2 - Chronic atrial fibrillation Category: Medical (8) Shoulder arthritis Current Visit: Yes Status: Acute Code(s): M19.019 - Primary osteoarthritis, unspecified shoulder Category: Medical
[2017-10-17] MEDS: BETAMET ACET/BETAMET NA PH 6 MG/1 ML - 5 ML IM SCH (11:45)
[2017-10-17 13:13] VITALS: BP 103/36; TEMP 97.8; O2SAT 92
[2017-10-18] MEDS ORDERED: Warfarin 5 MG TAB PO SCH (21:00)
== END 2017-10-17 13:37 | disposition home or self-care (01) | DRG 192 ==
LOC: ER 16:18 → MED/SURG 20:03
PROVIDERS: ADMIT Family Medicine; ATTEND Family Medicine